=== PATIENT | female | born 1935 | race African-American/Black ===

== ENCOUNTER 2019-11-28 13:37 | Inpatient (IN) | payer MEDICARE, OTHER ==
[~2019-11-28] VITALS: Ht 167.6 cm; Wt 62.3 kg
[~2019-11-28 13:37] MED LIST: ACETAMINOPHEN-1 EAC1 ORAL; AMLODIPINE BESY10 MG ORAL; ATORVASTATIN CA10 MG ORAL; GABAPENTIN300 MG ORAL; IBUPROFEN600 MG ORAL; LASIX40 MG ORAL; NADOLOL40 MG ORAL; NORCO 10-325 T1 EACH ORAL; NORCO 5-325 TA1 EACH ORAL; NOVOLIN 70100 UNIT/1 SUBQ; SOMA350 MG PO; SPIRONOLACTONE50 MG ORAL; SYMBICORT2 PUFF1 *; VESICARE5 MG ORAL; VICODIN 5-5001 EACH ORAL
[2019-11-28 13:59] VITALS: BP 103/66
[2019-11-28] MEDS ORDERED: LISINOPRIL10 MG ORAL (13:59)
[2019-11-28] MEDS ORDERED: ACETAMINOPHEN325 M1 ORAL (13:59)
[2019-11-28] MEDS ORDERED: OXYBUTYNIN CHLO10 MG PO (13:59)
[2019-11-28] MEDS ORDERED: CEPHALEXIN500 MG ORAL (13:59)
[2019-11-28] MEDS ORDERED: CATAPRES0.1 MG ORAL (13:59)
[2019-11-28] MEDS ORDERED: ELIQUIS5 MG PO (13:59)
[2019-11-28] MEDS ORDERED: MULTIVITAMINS1 EAC8 ORAL (13:59)
--- NOTE | 2019-11-28 14:01 | NUR ---
ED Nurse Note: [facility] cellul[facility] on both upper and lower extremities. Per report, pt has already been taking ATB PO and vanco IV for 3 days but still ineffective. Pt is AOx2, calm and cooperative. Pt verbalized 9/10 pain scale, in generalized. Pt arrived with oxygen supplementation of 3 liters/min via NC. Placed on bed, Dr. Albert at bedside.
--- NOTE | 2019-11-28 14:05 | Emergency Room Report ---
History of Present Illness General Chief Complaint: Edema Source: Patient Present Illness HPI Patient is a 83-year-old female presents after increased generalized body swelling and edema. Patient had been sent in from a nursing facility. Prior history of smoking. She denies any prior history of heart kidney or liver disease. Reports having increased bilateral ex extremity pain. She is brought in by basic ambulance from facility. Allergies: Coded Allergies: BACLOFEN (Verified Allergy, Severe, ANAPHYLAXIS, 09/12/09) Patient History Past Medical History: see triage record Reviewed Nursing Documentation: PMH: Agreed; PSxH: Agreed Nursing Documentation-PMH Hx Hypertension: Yes Hx Pacemaker: Yes Hx COPD: Yes Hx Diabetes: Yes Hx Gastrointestinal Problems: Yes - GERD Review of Systems All Other Systems: negative except mentioned in HPI Physical Exam Vital Signs Date Time Temp Pulse Resp B/P (MAP) Pulse Ox O2 Delivery O2 Flow Rate FiO2 11/28/19 13:44 96.1 66 18 103/66 (78) 92 Nasal Cannula 2.0 Sp02 EP Interpretation: reviewed, normal General Appearance: alert, GCS 15, Chronically Ill Head: atraumatic ENT: normal ENT inspection, hearing grossly normal, normal voice Neck: normal inspection, full range of motion, supple, no bony tend Respiratory: normal inspection, lungs clear, normal breath sounds, no respiratory distress, no retraction, no wheezing Cardiovascular #1: regular rate, rhythm, no edema Gastrointestinal: normal inspection, normal bowel sounds, non tender, soft, no guarding, no hernia Genitourinary: no CVA tenderness Musculoskeletal: normal inspection, back normal, normal range of motion Neurologic: alert, motor strength/tone normal, 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 Differential diagnosis include was not limited to cellulitis, skin infection, hypothyroidism, among others. Because of complexity of patient's case laboratory tests and imaging studies were ordered. Patient's laboratory testing showed some evidence of anemia as well as markedly elevated TSH. Dr. Olayinka Lopez was contacted for inpatient management due to primary care physician. Dr. Morillo was contacted for plastic surgery consult. Patient be admitted for further evaluation. Last Vital Signs Date Time Temp Pulse Resp B/P (MAP) Pulse Ox O2 Delivery O2 Flow Rate FiO2 11/28/19 13:59 66 18 Nasal Cannula 2.0 11/28/19 13:59 96.1 103/66 92 Status: improved Disposition: ADMITTED INPATIENT Condition: Stable Shady Albert MD Nov 28, 2019 14:05
[2019-11-28 14:35] LABS: HEMOGLOBIN 10.2 G/DL (12.0-16.0); MEAN CORPUSCULAR VOLUME 93 FL (80-99); PLATELET COUNT 202 K/UL (150-450); RED BLOOD COUNT 3.35 M/UL (4.20-5.40); RED CELL DISTRIBUTION WIDTH 14.2 % (11.6-14.8); WHITE BLOOD COUNT 3.2 K/UL (4.8-10.8)
[2019-11-28 14:36] LABS: BASOPHILS % (AUTO) 1.7 % (0.0-2.0); EOSINOPHILS % (AUTO) 11.8 % (0.0-3.0); MONOCYTES % (AUTO) 8.4 % (1.0-10.0); NEUTROPHILS % (AUTO) 49.2 % (45.0-75.0)
[2019-11-28 14:47] LABS: ANION GAP 8 mmol/L (5-15); BLOOD UREA NITROGEN 39 mg/dL (7-18); CALCIUM 8.7 MG/DL (8.5-10.1); CARBON DIOXIDE 27 MMOL/L (21-32); CHLORIDE 103 MMOL/L (98-107); CREATININE 1.5 MG/DL (0.55-1.30); POTASSIUM 5.7 MMOL/L (3.5-5.1); SODIUM 138 MMOL/L (136-145)
[2019-11-28 14:55] LABS: ALANINE AMINOTRANSFERASE 43 U/L (12-78); ALBUMIN 2.5 G/DL (3.4-5.0); ALBUMIN/GLOBULIN RATIO 0.6 (1.0-2.7); ALKALINE PHOSPHATASE 106 U/L (46-116); ASPARTATE AMINO TRANSFERASE 50 U/L (15-37); BILIRUBIN,TOTAL 0.2 MG/DL (0.2-1.0)
[2019-11-28 15:14] LABS: APPEARANCE,URINE CLEAR; BILIRUBIN, URINE NEGATIVE (NEGATIVE); GLUCOSE, URINE (UA) NEGATIVE (NEGATIVE); KETONES,URINE NEGATIVE (NEGATIVE); LEUKOCYTE ESTERASE ,URINE NEGATIVE (NEGATIVE); NITRITE,URINE NEGATIVE (NEGATIVE); PH,URINE 5 (4.5-8.0); PROTEIN,URINE NEGATIVE (NEGATIVE); UROBILINOGEN,URINE NORMAL MG/DL (0.0-1.0)
[2019-11-28 15:18] LABS: COLOR,URINE YELLOW
--- NOTE | 2019-11-28 15:25 | NUR ---
ED Nurse Note: JUAN MANUEL KUNZ(ALEJANDRO) - -HOME PHONE -CELL PHONE
--- NOTE | 2019-11-28 17:20 | NUR ---
TRANSFER TO FLOOR: Patient transferred to Telemetry as ordered, per Dr. Blount. Report given to Candida HICKS. Belongings and medications given to receiving nurse. Family and or S/O informed of transfer.
[2019-11-28 17:35] VITALS: BP 119/66
--- NOTE | 2019-11-28 17:40 | NUR ---
NURSE NOTES: ADMITTED 83 YEAR OLD FEMALE TO ROOM 209 BED 2 VIA GURNEY FROM EMERGENCY DEPARTMENT UNDER THE CARE OF DR. TEJADA, DIAGNOSIS; COPD AND ANASARCA. NO SIGNS AND SYMPTOMS OF ACUTE RESPIRATORY DISTRESS/SHORTNESS OF BREATH NOTED, ABLE TO MAKE NEEDS KNOWN, DENIES PAIN AT THIS TIME. TRANSMISSION SPECIALIST PLACED, IV INTACT, VITAL SIGNS TAKEN. BELONGING CHECK DONE WITH TRANSFERRING NURSE. NO PRESSURE ULCER NOTED, EXCEPT CELLULITES ON BOTH BILATERAL LOWER AND UPPER EXTREMITIES. PATIENT IS IN STABLE CONDITION, WILL CONTACT MD FOR ADMISSION ORDER.
[2019-11-28] MEDS ORDERED: HydrALAZINE 25mg tab ORAL PRN (17:45)
[2019-11-28] MEDS ORDERED: HYDROcodone/Acetamin 5/325 tab ORAL PRN (17:45)
--- NOTE | 2019-11-28 17:47 | Consultation ---
Consult Note Consult Note I was asked to evaluate the patient at the request of a Dr. Blount for renal failure and hyperkalemia. Patient is 83-year old -[place] female. Presents to our emergency room for generalized body swelling and edema. Patient lives in a residential. Patient has history of smoking. Has history of heart condition but no liver or renal disease. Reports bilateral leg swelling. Allergies to baclofen . Past history is also significant for hypertension pacemaker COPD diabetes and gastroesophageal reflux disease.\On examination the patient is afebrile pulse later is 66 respiratory rate 18 blood pressure 103/66 pulse ox is 92% on 2 L/ min oxygen appears to be chronically ill. Patient has decreased breath sounds over the bases. Heart is regular with occasional irregular beats. Abdomen soft. Has bilateral lower leg swelling also upper extremities is somewhat edematous patient has skin cracking over her lower extremities and upper extremities. Her medications includes Tylenol Norvasc Eliquis Lipitor inhalers she also take Lasix clonidine gabapentin Aldactone [place] ibuprofen lisinopril Vesicare insulin and Corgard. . Assessment/Plan Renal Failure- HyperKalemia : Aldactone and Lisinopril DM Hypothyroidism : TSH 42 Pacer Hold Aldactone. Hold lisinopril. Kayexalate p.o. once Adjust blood pressure medication. Anemia work-up. 2D echocardiogram. Protonix and stool softener. IV Synthroid. Monitor electrolytes and renal parameters. Skin care. Per orders. Wale Noguera MD Nov 28, 2019 17:47
[2019-11-28] MEDS ORDERED: Sodium Polystyrene Sulfonate 15gm Powder ORAL SCH (18:30)
[2019-11-28] MEDS: Docusate 100mg cap ORAL SCH (19:08)
--- NOTE | 2019-11-28 19:16 | NUR ---
HAND-OFF: Report given to Radha/RN. Patient is in stable condition. Endorsed plan of care.
--- NOTE | 2019-11-28 19:20 | NUR ---
NURSE NOTES: Received pt and report from FABIOLA Snyder. Observed pt in the bathroom. Pt is A/Ox2-3. billing assistant is in placed; pt is NSR. IV site intact, asymptomatic, and patent. Bed is in the lowest position and locked. Call light and bedside table is within reach. No signs/symptoms of acute distress noted at this time. Will continue plan of care.
--- NOTE | 2019-11-28 20:54 | NUR ---
NURSE NOTES: Pt is currently confused, ambulating the schuler with walker and asking for a lady name Sandrita. Pt refused all medications stating, "Honey, you take the meds. You're not drugging me up tonight." Dr. Blount made aware. Dr. Blount ordered 1:1 sitter and Ativan 0.5mg PO PRN Q6H for anxiety. Will note and carry out.
[2019-11-28] MEDS ORDERED: LORazepam 0.5mg tab ORAL PRN (21:00)
[2019-11-28] MEDS: Eliquis 5mg tablet ORAL SCH (21:00)
[2019-11-28] MEDS ORDERED: Atorvastatin 20mg tab ORAL SCH (21:00)
--- NOTE | 2019-11-28 21:30 | History and Physical Report ---
DATE OF ADMISSION: 11/28/2019 HISTORY OF PRESENT ILLNESS: The patient comes in with worsening upper extremity edema and cellulitis, very scaly, and edema is getting worse. The patient has been hospitalized before and has received IV antibiotics as well as anticoagulant for the upper extremity DVT. The patient also has recent diagnosis of lung cancer. Cachexia and emaciated due to the cancer. The patient has also been having worsening dementia in the recent past months. The patient also has history of COPD and diabetes and also has leukopenia and also admitted for hyperkalemia and azotemia as well. Denies shortness of breath. Does have occasional cough. Does have occasional wheezing; however, is a poor historian at this point. PAST MEDICAL HISTORY: Dementia, neuropathy, NIDDM, lung cancer, hypertension, GERD, urinary incontinence, upper extremity DVT and cellulitis, hyperlipidemia, history of wrist fracture, history of foot fracture. PAST SURGICAL HISTORY: History of foot and lower extremity fracture repair, pacemaker. ALLERGIES: To baclofen. MEDICATIONS: Lipitor, Eliquis, amlodipine, insulin, and spironolactone. FAMILY HISTORY: Does have history of diabetes and hypertension. SOCIAL HISTORY: Does have heavy smoking history. Does have history of alcohol abuse. Denies history of drug abuse. REVIEW OF SYSTEMS: HEENT: Denies headaches. RESPIRATORY: Denies shortness of breath. Does have cough and wheezing at times. CARDIOVASCULAR: Denies chest pain. GASTROINTESTINAL: Denies nausea, vomiting, or diarrhea. EXTREMITIES: Reports worsening edema in the upper extremity and also worsening hand pain both hands. Denies pain in lower extremities. CENTRAL NERVOUS SYSTEM: Denies change in speech pattern. PHYSICAL EXAMINATION: VITAL SIGNS: Temperature is 96.1, pulse 66, blood pressure is 103/66. HEENT: PERRLA. NECK: Supple. CHEST: Irregularly irregular. Paced rhythm is appreciated. The patient has scaly upper extremity hands and edema and cellulitis that is getting worse. The patient is emaciated and cachectic. GASTROINTESTINAL: Soft, nontender, nondistended. No organomegaly. EXTREMITIES: No edema. Reflexes equal on both sides. Moves all four extremities. NEUROLOGIC: Oriented x1. LABORATORY DATA: WBC of 3.2, hemoglobin of 10.2, platelets 202. Sodium 138, potassium 5.7, BUN of 39, creatinine 1.5, glucose 139. TSH 42.5. ASSESSMENT AND PLAN: Upper extremity edema, upper extremity cellulitis getting worse. I have asked Dr. Elvin Morillo as well as Dr. Simone Haynes to see the patient as well as Dr. Rick Huerta for the DVT treatment. The patient also has azotemia and hyperkalemia for which Dr. Noguera has been consulted and for severe hypothyroidism, Dr. Honeycutt has been consulted. Antibiotics per Dr. Simone Haynes. Olayinka Blount M.D. DR: CHARLES JOB#: [id number] CC:
--- NOTE | 2019-11-28 22:26 | NUR ---
NURSE NOTES: Pt continues to ambulate schuler and pulling off laboratory monitor. Attempted to reorient pt and reapply laboratory monitor but pt refused stating, "You're real close to me. I'm going to punch you if you keep it up." Will continue to monitor pt closely.
[2019-11-29] VITALS: BP 112/63
--- NOTE | 2019-11-29 01:30 | NUR ---
NURSE NOTES: Pt is now calm and in bed watching television. No signs/symptoms of acute distress noted at this time. Will continue plan of care and monitor pt closely.
[2019-11-29] MEDS ORDERED: LORazepam 1mg tab ORAL PRN ×2 (03:00→17:50)
--- NOTE | 2019-11-29 04:25 | NUR ---
NURSE NOTES: Pt refused 0400 vital signs and manager monitoring. Pt would agree to care, but would refuse shortly after when RN proceed to care. Explained to risks and benefits to pt. Will continue to monitor pt.
--- NOTE | 2019-11-29 06:22 | Consultation ---
History of Present Illness General Chief Complaint: Edema Present Illness Allergies: Coded Allergies: BACLOFEN (Verified Allergy, Severe, ANAPHYLAXIS, 09/12/09) Medication History Scheduled Amlodipine Besylate* (Amlodipine Besylate*), 10 MG ORAL DAILY, (Reported) Apixaban (Eliquis), 5 MG PO BID, (Reported) Atorvastatin Calcium* (Lipitor*), 20 MG ORAL BEDTIME, (Reported) Budesonide/Formoterol Fumarate (Symbicort 160-4.5 Mcg Inhaler), 2 PUFFS * needed , (Reported) Cephalexin* (Keflex*), 500 MG ORAL EVERY 8 HOURS, (Reported) Clonidine Hcl* (Catapres*), 0.1 MG ORAL EVERY 6 HOURS, (Reported) Furosemide* (Lasix*), 40 MG ORAL DAILY, (Reported) Gabapentin* (Gabapentin*), 300 MG ORAL THREE TIMES A DAY, (Reported) Hum Insulin Nph/Reg Insulin Hm (Novolin 70-30 100 Unit/Ml Vial), 20 SUBQ am, ( Reported) Hum Insulin Nph/Reg Insulin Hm (Novolin 70-30 100 Unit/Ml Vial), 24 SUBQ pm, ( Reported) Hydrocodone/Acetaminophen 5-500 (Vicodin 5-500), 1 TAB ORAL Q4HR, (Reported) Ibuprofen* (Motrin*), 600 MG ORAL THREE TIMES A DAY Lisinopril* (Lisinopril*), 10 MG ORAL DAILY, (Reported) Multivitamin With Minerals (Multivitamins With Minerals*), 1 TAB ORAL DAILY, ( Reported) Nadolol* (Corgard*), 20 MG ORAL DAILY, (Reported) Solifenacin Succinate* (Vesicare*), 5 MG ORAL DAILY, (Reported) Spironolactone* (Aldactone*), 12.5 MG ORAL DAILY, (Reported) Scheduled PRN Acetaminophen With Codeine (T#3) (Tylenol #3 Tab*), 1 TAB ORAL Q8H PRN for For Pain Acetaminophen* (Acetaminophen 325MG Tablet*), 650 MG ORAL Q6H PRN for For Pain, (Reported) Hydrocodone Bit/Acetaminophen 5-325* ([place]ena 5-325*), 1 TAB ORAL Q6H PRN for For Pain Miscellaneous Medications Oxybutynin Chloride (Oxybutynin Chloride Er), 10 MG PO, (Reported) Patient History Healthcare decision maker N Resuscitation status Full Code Advanced Directive on File Physical Exam Last 24 Hour Vital Signs Date Time Temp Pulse Resp B/P (MAP) Pulse Ox O2 Delivery O2 Flow Rate FiO2 11/29/19 00:00 63 11/29/19 00:00 96.8 63 20 112/63 (79) 94 11/28/19 21:00 Nasal Cannula 2.0 11/28/19 19:40 87 11/28/19 17:56 Nasal Cannula 2.0 11/28/19 17:35 96.5 60 18 119/66 (83) 96 11/28/19 17:20 96.1 68 17 103/66 96 Nasal Cannula 2.0 11/28/19 13:59 66 18 Nasal Cannula 2.0 11/28/19 13:59 96.1 18 103/66 92 Nasal Cannula 2.0 11/28/19 13:44 96.1 66 18 103/66 (78) 92 Nasal Cannula 2.0 Laboratory Tests Test 11/28/19 14:17 11/28/19 14:46 White Blood Count 3.2 K/UL (4.8-10.8) L Red Blood Count 3.35 M/UL (4.20-5.40) L Hemoglobin 10.2 G/DL (12.0-16.0) L Hematocrit 31.0 % (37.0-47.0) L Mean Corpuscular Volume 93 FL (80-99) Mean Corpuscular Hemoglobin 30.4 PG (27.0-31.0) Mean Corpuscular Hemoglobin Concent 32.8 G/DL (32.0-36.0) Red Cell Distribution Width 14.2 % (11.6-14.8) Platelet Count 202 K/UL (150-450) Mean Platelet Volume 5.1 FL (6.5-10.1) L Neutrophils (%) (Auto) 49.2 % (45.0-75.0) Lymphocytes (%) (Auto) 29.0 % (20.0-45.0) Monocytes (%) (Auto) 8.4 % (1.0-10.0) Eosinophils (%) (Auto) 11.8 % (0.0-3.0) H Basophils (%) (Auto) 1.7 % (0.0-2.0) Erythrocyte Sedimentation Rate 60 MM/HR (0-30) H Sodium Level 138 MMOL/L (136-145) Potassium Level 5.7 MMOL/L (3.5-5.1) H Chloride Level 103 MMOL/L (98-107) Carbon Dioxide Level 27 MMOL/L (21-32) Anion Gap 8 mmol/L (5-15) Blood Urea Nitrogen 39 mg/dL (7-18) H Creatinine 1.5 MG/DL (0.55-1.30) H Estimat Glomerular Filtration Rate 40.4 mL/min (>60) Glucose Level 129 MG/DL (74-106) H Calcium Level 8.7 MG/DL (8.5-10.1) Total Bilirubin 0.2 MG/DL (0.2-1.0) Aspartate Amino Transf (AST/SGOT) 50 U/L (15-37) H Alanine Aminotransferase (ALT/SGPT) 43 U/L (12-78) Alkaline Phosphatase 106 U/L (46-116) Troponin I 0.017 ng/mL (0.000-0.056) Pro-B-Type Natriuretic Peptide 305 pg/mL (0-125) H Total Protein 6.4 G/DL (6.4-8.2) Albumin 2.5 G/DL (3.4-5.0) L Globulin 3.9 g/dL Albumin/Globulin Ratio 0.6 (1.0-2.7) L Thyroid Stimulating Hormone (TSH) 42.594 uiU/mL (0.358-3.740) Urine Color Yellow Urine Appearance Clear Urine pH 5 (4.5-8.0) Urine Specific [place] 1.015 (1.005-1.035) Urine Protein Negative (NEGATIVE) Urine Glucose (UA) Negative (NEGATIVE) Urine Ketones Negative (NEGATIVE) Urine Blood Negative (NEGATIVE) Urine Nitrite Negative (NEGATIVE) Urine Bilirubin Negative (NEGATIVE) Urine Urobilinogen Normal MG/DL (0.0-1.0) Urine Leukocyte Esterase Negative (NEGATIVE) Urine RBC 0-2 /HPF (0 - 2) Urine WBC 0-2 /HPF (0 - 2) Urine Squamous Epithelial Cells Occasional /LPF Urine Bacteria None /HPF (NONE) Height (Feet): 5 Height (Inches): 6.00 Weight (Pounds): 143 Medications Current Medications Medications (Trade) Dose Ordered Sig/Shania Route PRN Reason Start Time Stop Time Status Last Admin Dose Admin Acetaminophen (Tylenol) 650 mg Q6H PRN ORAL For Pain 1-3 11/28/19 18:00 12/28/19 17:46 Acetaminophen/ Hydrocodone Bitart (Buena 5/325) 1 tab Q6H PRN ORAL For Pain 4-6 11/28/19 17:45 12/05/19 17:44 Apixaban (Eliquis) 5 mg Q12HR ORAL 11/28/19 21:00 12/28/19 20:59 Atorvastatin Calcium (Lipitor) 20 mg BEDTIME ORAL 11/28/19 21:00 12/28/19 20:59 Carvedilol (Coreg) 3.125 mg EVERY 12 HOURS ORAL 11/28/19 21:00 12/28/19 20:59 Docusate Sodium (Colace) 100 mg TWICE A DAY ORAL 11/28/19 18:00 12/28/19 17:59 11/28/19 19:08 Gabapentin (Neurontin) 300 mg Q8HR ORAL 11/28/19 22:00 12/28/19 21:59 11/29/19 05:39 Hydralazine HCl (Apresoline) 25 mg Q4H PRN ORAL bp over 160 syst 11/28/19 17:45 12/28/19 17:44 Levothyroxine Sodium (Synthroid) 50 mcg DAILY IV 11/29/19 09:00 12/29/19 08:59 Lorazepam (Ativan) 1 mg Q6H PRN ORAL For Anxiety 11/29/19 03:00 12/06/19 02:59 Pantoprazole (Protonix) 40 mg Q12HR ORAL 11/28/19 21:00 12/28/19 20:59 Assessment/Plan Assessment/Plan: Oncology Consultation REKuldeep MD: Olayinka Lopez RFC: Upper ext dvt and lung ca DOS: 11/29/19 ID Patient is a 83-year-old female presents after increased generalized body swelling and edema. Patient had been sent in from a nursing facility. Prior history of smoking. She denies any prior history of heart kidney or liver disease. Reports having increased bilateral ex extremity pain. She is brought in by basic ambulance from facility. Is on apixaban for upper ext dvt. Allergies: BACLOFEN (Verified Allergy, Severe, ANAPHYLAXIS, 09/12/09) Patient History Past Medical History: see triage record Reviewed Nursing Documentation: PMH: Agreed; PSxH: Agreed Nursing Documentation-PMH Hx Hypertension: Yes Hx Pacemaker: Yes Hx COPD: Yes Hx Diabetes: Yes Hx Gastrointestinal Problems: Yes - GERD Review of Systems All Other Systems: negative except mentioned in HPI Physical Exam General: normal inspection, alert, GCS 15, Chronically Ill Head: atraumatic HEENT: nc, at Resp: normal inspection, lungs clear, normal breath sounds Cardiovascular: regular rate, rhythm, no edema Gi: normal inspection, normal bowel sounds, non tender, soft, no guarding, no hernia Genitourinary: no CVA tenderness Musculoskeletal: normal inspection, back normal, normal range of motion Neurologic: alert, motor strength/tone normal, 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 LABORATORY DATA: WBC of 3.2, hemoglobin of 10.2, platelets 202. Sodium 138, potassium 5.7, BUN of 39, creatinine 1.5, glucose 139. TSH 42.5. IMAGING: noted ASSESSMENT AND PLAN: # Lung cancer recent diagnosis at [facility], with likely spread, stage iv, though requires pet --> recommend outpatient evaluation and rx --> has seen us in the outpatient clinic --> obtain clinic records, do not believe she has started treatment uet # Upper extremity dvt with edema, & upper extremity cellulitis getting worse --> have started on apixaban # Upper ext cellulitis --> on abx as needed # Dehydration and azotemia --> started on ivf # Hyperkalemia --> kayxelate has been given po # Hypothyroidism, Dr. Honeycutt has been --> synthroid Appreciate consultation and Rick Nichols RN, MD Nov 29, 2019 06:22
[2019-11-29] MEDS: NovoLOG Insulin Flexpen SUBQ SCH ×4 (06:30→20:24)
--- NOTE | 2019-11-29 07:08 | NUR ---
NURSE NOTES: Pt refused blood sugar check and insulin subQ. Explained the risks and benefits. Will monitor pt.
--- NOTE | 2019-11-29 07:30 | NUR ---
NURSE NOTES: Nurse report given by FABIOLA SAAB. Patient's awake and laying in bed, eyes open spontaneously, AO x 2, denies pain, no s/s of distress or SOB. Bed low and locked, call light within reach, side rails x3, bed alarm is armed, sitter at bedside. Patient refused morning lab and 0800 vital signs check, explained the risks and patient still denied. Patient also denied to have 2D echo test done. Will inform MD regarding the situation. IV is saline locked, patent and asymptomatic. Will continue to monitor.
--- NOTE | 2019-11-29 07:50 | NUR ---
HAND-OFF: Report given to FABIOLA Small. Plan of care endorsed.
[2019-11-29] MEDS: Docusate 100mg cap ORAL SCH ×2 (09:00→18:21)
[2019-11-29] MEDS: Eliquis 5mg tablet ORAL SCH ×2 (09:00→20:25)
[2019-11-29] MEDS ORDERED: Lidocaine 1% 10mg/ml/Epi 0.005mg/ml 30ml vial INJ ONE (10:30)
[2019-11-29 12:00] VITALS: BP 121/72
--- NOTE | 2019-11-29 14:36 | NUR ---
NURSE NOTES: Notified Dr. Blount regarding patient's been refusing all medications, labs drawn and imaging tests. Dr. Jluis Haynes order Permethrin for her cellulitis but patient also refused to be applied and dressing changed. Explains the benefits of the medication and risks of not taking the medications but patient still refused. Patient refused to have tele box monitor. Informed Dr. blount that Dr. Edwards also discharged patient's sitter. MD aware and ordered to transfer patient to [facility]. Order acknowledged and carried out.
--- NOTE | 2019-11-29 15:02 | Nephrology Progress Note ---
Assessment/Plan Problem List: (1) CARYL (acute kidney injury) (2) Electrolyte imbalance (3) Hypothyroidism (4) DMII (diabetes mellitus, type 2) (5) Pacemaker Assessment Renal Failure- HyperKalemia : Aldactone and Lisinopril DM Hypothyroidism : TSH 42 Pacer Plan According to the nurse patient refused blood draw and some of her medications Hold Aldactone. Hold lisinopril. Kayexalate p.o. once Adjust blood pressure medication. Anemia work-up. 2D echocardiogram. Protonix and stool softener. IV Synthroid. Monitor electrolytes and renal parameters. Skin care. Per orders. Subjective ROS Limited/Unobtainable: No Constitutional: Reports: weakness Objective Objective Last 24 Hour Vital Signs Date Time Temp Pulse Resp B/P (MAP) Pulse Ox O2 Delivery O2 Flow Rate FiO2 11/29/19 12:00 97.7 69 18 121/72 (88) 93 11/29/19 09:00 63 112/63 11/29/19 09:00 Nasal Cannula 2.0 11/29/19 00:00 63 11/29/19 00:00 96.8 63 20 112/63 (79) 94 11/28/19 21:00 Nasal Cannula 2.0 11/28/19 19:40 87 11/28/19 17:56 Nasal Cannula 2.0 11/28/19 17:35 96.5 60 18 119/66 (83) 96 11/28/19 17:20 96.1 68 17 103/66 96 Nasal Cannula 2.0 Intake and Output 11/28/19 11/29/19 19:00 07:00 Intake Total 200 ml Balance 200 ml Intake Other 200 ml # Voids 4 Height (Feet): 5 Height (Inches): 6.00 Weight (Pounds): 143 General Appearance: no apparent distress, lethargic Cardiovascular: normal rate Respiratory/Chest: decreased breath sounds Abdomen: soft Wale Noguera MD Nov 29, 2019 15:02
[2019-11-29 16:00] VITALS: BP 104/55
--- NOTE | 2019-11-29 16:20 | NUR ---
CASE MANAGEMENT:REVIEW 83 YR OLD FEMALE KENIA FROM [facility] CC: BUE CELLULITIS PMH: PACEMAKER SI: CARYL.EDEMA 96.0 66 18 103/66 92% ON 2L/NC H/H-10.2/31.0 K+5.7 BUN+39 CR+1.5 TSH+45.5 IS: IV LASIX IV SYNTHROID KAYEXALATE PO IV ALBUMIN : TO TELEMETRY
--- NOTE | 2019-11-29 17:00 | Consultation ---
DATE OF CONSULTATION: 11/29/2019 ENDOCRINOLOGY CONSULTATION CONSULTING PHYSICIAN: Natalio Honeycutt M.D. REFERRING PHYSICIAN: Olayinka Blount M.D. REASON FOR CONSULTATION: 1. Diabetes management. 2. Hypothyroidism. HISTORY OF PRESENT ILLNESS: The patient is an 83-year-old female, known to me since I follow her as an outpatient for the management of diabetes. She does not have any history of hypothyroidism. The patient missed a recent appointment last week. Last time I saw her was four months ago, and at that time her hemoglobin A1c was 6.9, and she was taking Lantus 20 units daily with Starlix 120 mg before each meal. The patient recently diagnosed with lung cancer and presented to the hospital, and at this time she was admitted with worsening of the upper extremity edema and upper extremity cellulitis. I was called to manage diabetes. PAST MEDICAL HISTORY: 1. Dementia. 2. Neuropathy. 3. Insulin dependent diabetes, on basal insulin. 4. Lung cancer. 5. Hypertension. 6. GERD. 7. Hyperlipidemia. 8. Wrist fracture. 9. Foot fracture. PAST SURGICAL HISTORY: 1. Orthopedic surgery. 2. Pacemaker placement. ALLERGIES: To baclofen. MEDICATIONS: Reviewed and reconciled. FAMILY HISTORY: History of diabetes and hypertension. SOCIAL HISTORY: Heavy smoker and does have history of alcohol abuse. No drug use. REVIEW OF SYSTEMS: A 12-point review of systems was performed and pertinent positives and negatives are mentioned in the history of present illness. PHYSICAL EXAMINATION: VITAL SIGNS: Blood pressure is 103/66, heart rate 66, temperature 96.1. HEENT: Pupils are equal and reactive to light. Sclerae are anicteric. NECK: No JVD. No thyromegaly. LUNGS: Clear. HEART: Regular rate and rhythm. ABDOMEN: Positive bowel sounds. EXTREMITIES: No clubbing, cyanosis, or edema. LABORATORY DATA: Sodium 138, potassium 5.7, chloride 102, bicarb 27, BUN 39, creatinine 1.5, glucose of 129. TSH of 42. DIAGNOSES: 1. Upper extremity edema with cellulitis. 2. Diabetes. 3. New-onset hypothyroidism. PLAN: 1. Continue with levothyroxine IV 50 mcg. After couple of days, we will convert to levothyroxine 100 mcg daily tablets. 2. Start NovoLog sliding scale before meals and at bedtime. 3. Check hemoglobin A1c is pending. 4. I will hold off on basal insulin and Starlix for now until I get a better sense of her most current glucose values. 5. I will follow her closely during the hospital stay. Thank you, Dr. Blount, for the courtesy of this consultation. Natalio Honeycutt M.D. DR: FABIOLA/RADHA JOB#: [id number] CC:
--- NOTE | 2019-11-29 17:45 | NUR ---
NURSE NOTES: Patient's transferred to [facility] per Dr. Blount's order. Patient's in stable condition, ambulates with assist, AO x 2, denies pain, no s/s of distress or SOB. Tele box removed. Patient's belonging list went over with the receiving nurse, FABIOLA Castro; signed by both nurses at bedside. Patient's transfer order carried out.
[2019-11-29] MEDS ORDERED: HYDROcodone/Acetamin 5/325 tab ORAL PRN (17:50)
[2019-11-29] MEDS ORDERED: HydrALAZINE 25mg tab ORAL PRN (17:50)
--- NOTE | 2019-11-29 18:04 | NUR ---
NURSE NOTES:Handoff received from FABIOLA Fuller from telemetry. Patient received awake and alert to person, place and situation, no acute signs of distress noted, vitals are stable. Patient has Left A/C 20g saline locked, patient belongings list go over with transferring nurse, all belongings accounted for and signed. Patient oriented to room and call light. Bed in the low and locked position with call light on, informed patient to use call light if she needs to get out of bed and not to get out of bed without assistance. will continue to monitor patient.
--- NOTE | 2019-11-29 18:28 | NUR ---
NURSE NOTES:Patient has Permethrin cream that is no longer showing up on the Emar. Transferring nurse said patient refused the cream. Contacted Ana to see if I can still apply the cream after it has been discontinued. Also called because the cream is for scabies and wanted to make sure this patient does not require isolation. Left a message for Taco Jaquez.
--- NOTE | 2019-11-29 19:35 | NUR ---
NURSE NOTES:HAND-OFF: Report given to FABIOLA Lovett.Informed RN that I left a message for ID doctor Ivy España to follow up regarding the topical cream permethrin as it was not adminstered to the patient and is now listed as dicontinued.
[2019-11-29 20:00] VITALS: BP 106/60
--- NOTE | 2019-11-29 20:00 | NUR ---
NURSE NOTES: Received patient awake in bed, edematous and scaly upper extremities noted, patient continuously scratching. Awaiting Dr Taco Haynes's response regarding patient isolation and plan of care.
[2019-11-29] MEDS: Atorvastatin 20mg tab ORAL SCH (20:24)
--- NOTE | 2019-11-29 21:00 | Consultation ---
DATE OF CONSULTATION: 11/29/2019 INFECTIOUS DISEASES CONSULTATION CONSULTING PHYSICIAN: Simone Haynes M.D. PRIMARY ATTENDING PHYSICIAN: Olayinka Blount M.D. REASON FOR CONSULTATION: Leukopenia, dermatitis, and cellulitis of upper extremities. HISTORY OF PRESENT ILLNESS: This is an 83-year-old female admitted yesterday from long term because of generalized edema. The patient had a recent history of admission to [facility] in [place]. She has chronic skin lesion in the upper extremities, likely dermatitis. PAST MEDICAL HISTORY: Significant for hypertension, COPD, diabetes mellitus, gastroesophageal reflux disease, history of lung cancer stage IV, history of deep vein thrombosis in the lower extremity, fracture of lower extremity. ALLERGIES: Baclofen. MEDICATIONS: Remeron, levothyroxine, insulin, lorazepam, gabapentin, Apixaban, carvedilol. SOCIAL HISTORY: longterm resident, smoker, . REVIEW OF SYSTEMS: No fever, no chills. No shortness of breath. No significant coughing. No nausea. No vomiting. No diarrhea. Itching in the upper extremities. PHYSICAL EXAMINATION: VITAL SIGNS: Temperature 95.8, pulse 63, blood pressure 112/63. GENERAL APPEARANCE: No acute distress. HEAD AND NECK: Getting oxygen by nasal cannula. [place] conjunctivae. HEART: Normal rate. LUNGS: Decreased sounds. ABDOMEN: Soft and nontender. EXTREMITIES: Has edema more in arms SKIN: Hyperkeratoses, skin cracks in upper extremities, has scratch graham. LABORATORY AND DIAGNOSTIC DATA: WBC 3.2, hemoglobin 10.3, hematocrit 31, platelets 202,000. ESR is 60. Sodium 138, potassium 5.7, chloride 103, bicarb 27, BUN 39, creatinine 1.5. TSH is elevated at 42.59. BNP is 305. IMPRESSION: Leukopenia, eosinophilia, has dermatitis, may also have cellulitis of upper extremities, hypertension, COPD, diabetes mellitus, lung cancer, hypothyroidism, history of DVT, dementia with behavioral problem. RECOMMENDATION: We will obtain wound culture. We will give a dose of Elimite. The patient currently refused medication. We will try for more information about previous hospitalization in [facility] in [place]. At the end of my exam, I thank Dr. Blount for involving me in the care of this patient. Simone Haynes M.D. DR: [place] JOB#: [id number] CC: TERRELL
--- NOTE | 2019-11-29 23:08 | General Progress Note ---
Assessment/Plan Problem List: (1) Edema ICD Codes: R60.9 - Edema, unspecified SNOMED: 860506589, 506015445 (2) Anemia ICD Codes: D64.9 - Anemia, unspecified SNOMED: 191857261 (3) Hypothyroidism ICD Codes: E03.9 - Hypothyroidism, unspecified SNOMED: 81802022 (4) DMII (diabetes mellitus, type 2) ICD Codes: E11.9 - Type 2 diabetes mellitus without complications SNOMED: 26195734 (5) Pacemaker ICD Codes: Z95.0 - Presence of cardiac pacemaker SNOMED: 029432124 (6) Osteoarthritis ICD Codes: M19.90 - Unspecified osteoarthritis, unspecified site SNOMED: 062906343 Status: progressing Assessment/Plan: severe edema and scaly upper extremity dvt of upper exteremity lung cancer worsening dementia agitation refusing meds dm Subjective ROS Limited/Unobtainable: Yes Allergies: Coded Allergies: BACLOFEN (Verified Allergy, Severe, ANAPHYLAXIS, 09/12/09) Objective Last 24 Hour Vital Signs Date Time Temp Pulse Resp B/P (MAP) Pulse Ox O2 Delivery O2 Flow Rate FiO2 11/29/19 21:13 Nasal Cannula 2.0 11/29/19 20:25 61 104/55 11/29/19 20:00 97.1 64 18 106/60 (75) 93 11/29/19 16:00 97.9 61 18 104/55 (71) 93 11/29/19 12:00 97.7 69 18 121/72 (88) 93 11/29/19 09:00 63 112/63 11/29/19 09:00 Nasal Cannula 2.0 11/29/19 00:00 63 11/29/19 00:00 96.8 63 20 112/63 (79) 94 Intake and Output 11/28/19 11/29/19 19:00 07:00 Intake Total 200 ml Balance 200 ml Intake Other 200 ml # Voids 4 Height (Feet): 5 Height (Inches): 6.00 Weight (Pounds): 143 General Appearance: confused Cardiovascular: regular rhythm Respiratory/Chest: lungs clear Abdomen: soft Olayinka Blount MD Nov 29, 2019 23:08
[2019-11-30] VITALS (12 sets, daily range): BP systolic 102–119; BP diastolic 56–70
--- NOTE | 2019-11-30 06:00 | Consultation ---
DATE OF CONSULTATION: 11/29/2019 HISTORY OF PRESENT ILLNESS: This is an 83-year-old female with a history of multiple medical issues who has been admitted to the hospital for medical stabilization. The patient is having hyperthyroidism and has dementia, leukopenia, and cellulitis. She has been admitted to the hospital for medical stabilization. The patient is a poor historian, unable to be engaged during evaluation. Answers the questions. The patient was also hospitalized . The patient has episodes of anxiety. PAST PSYCHIATRIC HISTORY: Dementia and anxiety disorder. PAST MEDICAL HISTORY: COPD, diabetes, hypertension, GERD, and lung cancer. ALLERGIES: Baclofen. SUBSTANCE ABUSE HISTORY: No known history of illicit drug use or alcohol. MENTAL STATUS EXAMINATION: The patient is alert and oriented times self and place. Mood is anxious. Affect is flat. Thought process, there is a paucity of thought content. Thought content, no suicidal or homicidal ideation. Cognition is impaired. Insight and judgment are impaired. ASSESSMENT: 1. Dementia with behavior disturbance. 2. Anxiety disorder. PLAN: 1. Ativan p.r.n. 2. Mirtazapine. 3. Discussed with the nurse. 4. DC the sitter. Lupe Edwards M.D. DR: EFREM JOB#: [id number] CC:
[2019-11-30] MEDS: NovoLOG Insulin Flexpen SUBQ SCH ×4 (06:20→22:34)
--- NOTE | 2019-11-30 06:29 | General Progress Note ---
Assessment/Plan Problem List: (1) Hypothyroid ICD Codes: E03.9 - Hypothyroidism, unspecified SNOMED: 19980219 (2) COPD (chronic obstructive pulmonary disease) ICD Codes: J44.9 - Chronic obstructive pulmonary disease, unspecified SNOMED: 24203411 (3) DMII (diabetes mellitus, type 2) ICD Codes: E11.9 - Type 2 diabetes mellitus without complications SNOMED: 19437311 Status: progressing Assessment/Plan: no need for Levemir or Starlix for now continue Novolog sliding scale continue Levothyroxine IV 50 mcg daily - will convert to tablet 100 mcg daily tomorrow Subjective Allergies: Coded Allergies: BACLOFEN (Verified Allergy, Severe, ANAPHYLAXIS, 09/12/09) All Systems: reviewed and negative except above Subjective glucose values are stable events noted Item Value Date Time Bedside Blood Glucose 97 mg/dl 11/30/19 0620 Bedside Blood Glucose 189 mg/dl H 11/29/192023 Objective Last 24 Hour Vital Signs Date Time Temp Pulse Resp B/P (MAP) Pulse Ox O2 Delivery O2 Flow Rate FiO2 11/30/19 04:00 98.0 70 20 104/62 (76) 96 11/30/19 00:00 97.5 69 18 110/66 (81) 96 11/29/19 21:13 Nasal Cannula 2.0 11/29/19 20:25 61 104/55 11/29/19 20:00 97.1 64 18 106/60 (75) 93 11/29/19 16:00 97.9 61 18 104/55 (71) 93 11/29/19 12:00 97.7 69 18 121/72 (88) 93 11/29/19 09:00 63 112/63 11/29/19 09:00 Nasal Cannula 2.0 Intake and Output 11/29/19 11/30/19 19:00 07:00 Intake Total 240 ml Balance 240 ml Intake Oral 240 ml # Voids 1 Laboratory Tests 11/30/19 05:40: White Blood Count [Pending], Red Blood Count [Pending], Hemoglobin [Pending], Hematocrit [Pending], Mean Corpuscular Volume [Pending], Mean Corpuscular Hemoglobin [Pending], Mean Corpuscular Hemoglobin Concent [Pending], Red Cell Distribution Width [Pending], Platelet Count [Pending], Mean Platelet Volume [ Pending], Neutrophils (%) (Auto) [Pending], Lymphocytes (%) (Auto) [Pending], Monocytes (%) (Auto) [Pending], Eosinophils (%) (Auto) [Pending], Basophils (%) (Auto) [Pending], Sodium Level [Pending], Potassium Level [Pending], Chloride Level [Pending], Carbon Dioxide Level [Pending], Blood Urea Nitrogen [Pending], Creatinine [Pending], Estimat Glomerular Filtration Rate [Pending], Glucose Level [Pending], Hemoglobin A1c [Pending], Uric Acid [Pending], Calcium Level [ Pending], Phosphorus Level [Pending], Magnesium Level [Pending], Total Bilirubin [Pending], Gamma Glutamyl Transpeptidase [Pending], Aspartate Amino Transf (AST/SGOT) [Pending], Alanine Aminotransferase (ALT/SGPT) [Pending], Alkaline Phosphatase [Pending], C-Reactive Protein, Quantitative [Pending], Pro- B-Type Natriuretic Peptide [Pending], Total Protein [Pending], Albumin [Pending] , Globulin [Pending], Triglycerides Level [Pending], Cholesterol Level [Pending] , LDL Cholesterol [Pending], HDL Cholesterol [Pending], Cholesterol/HDL Ratio [ Pending] Height (Feet): 5 Height (Inches): 6.00 Weight (Pounds): 143 General Appearance: no apparent distress Cardiovascular: normal rate Respiratory/Chest: rhonchi - bilaterally Abdomen: normal bowel sounds Pelvis: normal external exam Objective Current Medications Medications (Trade) Dose Ordered Sig/Shania Route PRN Reason Start Time Stop Time Status Last Admin Dose Admin Acetaminophen (Tylenol) 650 mg Q6H PRN ORAL For Pain 1-3 11/29/19 17:50 12/29/19 17:49 Acetaminophen/ Hydrocodone Bitart (Bessie 5/325) 1 tab Q6H PRN ORAL For Pain 4-6 11/29/19 17:50 12/06/19 17:49 Apixaban (Eliquis) 5 mg Q12HR ORAL 11/29/19 21:00 12/28/19 20:59 11/29/19 20:25 Atorvastatin Calcium (Lipitor) 20 mg BEDTIME ORAL 11/29/19 21:00 12/28/19 20:59 11/29/19 20:24 Carvedilol (Coreg) 3.125 mg EVERY 12 HOURS ORAL 11/29/19 21:00 12/28/19 20:59 11/29/19 20:25 Dextrose (Dextrose 50%) 25 ml Q30M PRN IV Hypoglycemia 11/29/19 18:00 12/29/19 06:29 Dextrose (Dextrose 50%) 50 ml Q30M PRN IV Hypoglycemia 11/29/19 18:00 12/29/19 06:29 Docusate Sodium (Colace) 100 mg TWICE A DAY ORAL 11/29/19 18:00 12/28/19 17:59 11/29/19 18:21 Gabapentin (Neurontin) 300 mg Q8HR ORAL 11/29/19 22:00 12/28/19 21:59 11/30/19 05:40 Hydralazine HCl (Apresoline) 25 mg Q4H PRN ORAL bp over 160 syst 11/29/19 17:50 12/29/19 17:49 Insulin Aspart (NovoLOG) BEFORE MEALS AND HS SUBQ 11/29/19 21:00 12/29/19 06:29 11/29/19 20:24 Levothyroxine Sodium (Synthroid) 50 mcg DAILY IV 11/30/19 09:00 12/29/19 08:59 Linezolid (Zyvox) 600 mg EVERY 12 HOURS ORAL 11/29/19 17:51 12/04/19 17:50 11/29/19 18:22 Lorazepam (Ativan) 1 mg Q6H PRN ORAL For Anxiety 11/29/19 17:50 12/06/19 17:49 11/29/19 22:20 Mirtazapine (Remeron) 7.5 mg BEDTIME ORAL 11/29/19 21:00 12/29/19 20:59 11/29/19 20:24 Pantoprazole (Protonix) 40 mg Q12HR ORAL 11/29/19 21:00 12/28/19 20:59 11/29/19 20:24 Natalio Honeycutt MD Nov 30, 2019 06:29
[2019-11-30 06:34] LABS: HEMATOCRIT 31.5 % (37.0-47.0); HEMOGLOBIN 10.4 G/DL (12.0-16.0); MEAN CORPUSCULAR VOLUME 93 FL (80-99); PLATELET COUNT 205 K/UL (150-450); RED CELL DISTRIBUTION WIDTH 14.9 % (11.6-14.8); WHITE BLOOD COUNT 2.9 K/UL (4.8-10.8)
--- NOTE | 2019-11-30 06:57 | NUR ---
HAND-OFF: Report given to Kathi.
[2019-11-30 07:09] LABS: NEUTROPHILS % (AUTO) 43.7 % (45.0-75.0)
[2019-11-30 07:10] LABS: BASOPHILS % (AUTO) 1.3 % (0.0-2.0); EOSINOPHILS % (AUTO) 11.1 % (0.0-3.0); LYMPHOCYTES % (AUTO) 34.5 % (20.0-45.0); MONOCYTES % (AUTO) 9.4 % (1.0-10.0)
--- NOTE | 2019-11-30 07:15 | NUR ---
NURSE NOTES: Received from FABIOLA Lovett. asleep. Patient received awake, alert and oriented x3. no acute signs of distress noted, vitals are stable.IV access on Left A/C 20g patent and intact. saline locked. Bed in the low and locked position with call light on, educate to use call light for assistance. brake engaged and locked @ all times. will continue to monitor.
[2019-11-30 07:20] LABS: ALANINE AMINOTRANSFERASE 45 U/L (12-78); ALBUMIN 2.3 G/DL (3.4-5.0); ALBUMIN/GLOBULIN RATIO 0.6 (1.0-2.7); ALKALINE PHOSPHATASE 97 U/L (46-116); ANION GAP 7 mmol/L (5-15); ASPARTATE AMINO TRANSFERASE 46 U/L (15-37); BILIRUBIN,TOTAL 0.2 MG/DL (0.2-1.0); BLOOD UREA NITROGEN 36 mg/dL (7-18); CALCIUM 8.3 MG/DL (8.5-10.1); CARBON DIOXIDE 29 MMOL/L (21-32); CHLORIDE 105 MMOL/L (98-107); CHOLESTEROL 179 MG/DL (< 200); CREATININE 1.6 MG/DL (0.55-1.30); GAMMA GLUTAMYL TRANSPEPTIDASE 25 U/L (5-85); HDL CHOLESTEROL 63 MG/DL (40-60); PHOSPHORUS 4.1 MG/DL (2.5-4.9); POTASSIUM 4.5 MMOL/L (3.5-5.1); SODIUM 141 MMOL/L (136-145); TRIGLYCERIDES 38 MG/DL (30-150)
[2019-11-30] MEDS: Eliquis 5mg tablet ORAL SCH (08:26)
[2019-11-30] MEDS: Docusate 100mg cap ORAL SCH ×2 (08:27→17:20)
--- NOTE | 2019-11-30 10:42 | Hematology/Onc Progress Note ---
Assessment/Plan Assessment/Plan ASSESSMENT AND PLAN: # Lung cancer recent diagnosis at [facility], with likely spread, stage iv, though requires pet --> recommend outpatient evaluation and rx --> has seen us in the outpatient clinic --> obtain clinic records, do not believe she has started treatment uet --> nc 2l # Upper extremity dvt with edema, & upper extremity cellulitis getting worse --> have started on apixaban # Upper ext cellulitis --> on abx as needed # Dehydration and azotemia --> started on ivf # Hyperkalemia --> kayxelate has been given po # Hypothyroidism, Dr. Honeycutt has been --> synthroid Appreciate consultation and nata RN Subjective Allergies: Coded Allergies: BACLOFEN (Verified Allergy, Severe, ANAPHYLAXIS, 09/12/09) Subjective 3/4: awake, on med surg, no overnight events, nc 2l Objective Objective Current Medications Medications (Trade) Dose Ordered Sig/Shania Route PRN Reason Start Time Stop Time Status Last Admin Dose Admin Acetaminophen (Tylenol) 650 mg Q6H PRN ORAL For Pain 1-3 11/29/19 17:50 12/29/19 17:49 Acetaminophen/ Hydrocodone Bitart ([place] 5/325) 1 tab Q6H PRN ORAL For Pain 4-6 11/29/19 17:50 12/06/19 17:49 Apixaban (Eliquis) 2.5 mg Q12HR ORAL 11/30/19 21:00 12/30/19 20:59 Atorvastatin Calcium (Lipitor) 20 mg BEDTIME ORAL 11/29/19 21:00 12/28/19 20:59 11/29/19 20:24 Carvedilol (Coreg) 3.125 mg EVERY 12 HOURS ORAL 11/29/19 21:00 12/28/19 20:59 11/30/19 08:26 Dextrose (Dextrose 50%) 25 ml Q30M PRN IV Hypoglycemia 11/29/19 18:00 12/29/19 06:29 Dextrose (Dextrose 50%) 50 ml Q30M PRN IV Hypoglycemia 11/29/19 18:00 12/29/19 06:29 Docusate Sodium (Colace) 100 mg TWICE A DAY ORAL 11/29/19 18:00 12/28/19 17:59 11/30/19 08:27 Gabapentin (Neurontin) 300 mg Q8HR ORAL 11/29/19 22:00 12/28/19 21:59 11/30/19 05:40 Hydralazine HCl (Apresoline) 25 mg Q4H PRN ORAL bp over 160 syst 11/29/19 17:50 12/29/19 17:49 Insulin Aspart (NovoLOG) BEFORE MEALS AND HS SUBQ 11/29/19 21:00 12/29/19 06:29 11/29/19 20:24 Levothyroxine Sodium (Synthroid) 25 mcg ONCE IV 11/30/19 10:00 11/30/19 12:00 11/30/19 09:29 Levothyroxine Sodium (Synthroid) 50 mcg DAILY IV 12/01/19 09:00 12/31/19 08:59 Linezolid (Zyvox) 600 mg EVERY 12 HOURS ORAL 11/29/19 17:51 12/04/19 17:50 11/30/19 08:26 Lorazepam (Ativan) 1 mg Q6H PRN ORAL For Anxiety 11/29/19 17:50 12/06/19 17:49 11/29/19 22:20 Mirtazapine (Remeron) 7.5 mg BEDTIME ORAL 11/29/19 21:00 12/29/19 20:59 11/29/19 20:24 Pantoprazole (Protonix) 40 mg Q12HR ORAL 11/29/19 21:00 12/28/19 20:59 11/30/19 08:26 Last 24 Hour Vital Signs Date Time Temp Pulse Resp B/P (MAP) Pulse Ox O2 Delivery O2 Flow Rate FiO2 11/30/19 09:00 Nasal Cannula 2.0 11/30/19 08:26 68 112/62 11/30/19 08:00 97.6 68 16 112/62 (79) 97 11/30/19 04:00 98.0 70 20 104/62 (76) 96 11/30/19 00:00 97.5 69 18 110/66 (81) 96 11/29/19 21:13 Nasal Cannula 2.0 11/29/19 20:25 61 104/55 11/29/19 20:00 97.1 64 18 106/60 (75) 93 11/29/19 16:00 97.9 61 18 104/55 (71) 93 11/29/19 12:00 97.7 69 18 121/72 (88) 93 11/29/19 09:00 63 112/63 11/29/19 09:00 Nasal Cannula 2.0 11/29/19 00:00 63 11/29/19 00:00 96.8 63 20 112/63 (79) 94 11/28/19 21:00 Nasal Cannula 2.0 11/28/19 19:40 87 11/28/19 17:56 Nasal Cannula 2.0 11/28/19 17:35 96.5 60 18 119/66 (83) 96 11/28/19 17:20 96.1 68 17 103/66 96 Nasal Cannula 2.0 11/28/19 13:59 66 18 Nasal Cannula 2.0 11/28/19 13:59 96.1 18 103/66 92 Nasal Cannula 2.0 11/28/19 13:44 96.1 66 18 103/66 (78) 92 Nasal Cannula 2.0 Intake and Output 11/29/19 11/30/19 19:00 07:00 Intake Total 240 ml Balance 240 ml Intake Oral 240 ml # Voids 1 Labs Test 11/28/19 14:17 11/28/19 14:46 11/30/19 05:40 White Blood Count 3.2 K/UL (4.8-10.8) 2.9 K/UL (4.8-10.8) Red Blood Count 3.35 M/UL (4.20-5.40) 3.40 M/UL (4.20-5.40) Hemoglobin 10.2 G/DL (12.0-16.0) 10.4 G/DL (12.0-16.0) Hematocrit 31.0 % (37.0-47.0) 31.5 % (37.0-47.0) Mean Corpuscular Volume 93 FL (80-99) 93 FL (80-99) Mean Corpuscular Hemoglobin 30.4 PG (27.0-31.0) 30.7 PG (27.0-31.0) Mean Corpuscular Hemoglobin Concent 32.8 G/DL (32.0-36.0) 33.1 G/DL (32.0-36.0) Red Cell Distribution Width 14.2 % (11.6-14.8) 14.9 % (11.6-14.8) Platelet Count 202 K/UL (150-450) 205 K/UL (150-450) Mean Platelet Volume 5.1 FL (6.5-10.1) 5.7 FL (6.5-10.1) Neutrophils (%) (Auto) 49.2 % (45.0-75.0) 43.7 % (45.0-75.0) Lymphocytes (%) (Auto) 29.0 % (20.0-45.0) 34.5 % (20.0-45.0) Monocytes (%) (Auto) 8.4 % (1.0-10.0) 9.4 % (1.0-10.0) Eosinophils (%) (Auto) 11.8 % (0.0-3.0) 11.1 % (0.0-3.0) Basophils (%) (Auto) 1.7 % (0.0-2.0) 1.3 % (0.0-2.0) Erythrocyte Sedimentation Rate 60 MM/HR (0-30) Sodium Level 138 MMOL/L (136-145) 141 MMOL/L (136-145) Potassium Level 5.7 MMOL/L (3.5-5.1) 4.5 MMOL/L (3.5-5.1) Chloride Level 103 MMOL/L (98-107) 105 MMOL/L (98-107) Carbon Dioxide Level 27 MMOL/L (21-32) 29 MMOL/L (21-32) Anion Gap 8 mmol/L (5-15) 7 mmol/L (5-15) Blood Urea Nitrogen 39 mg/dL (7-18) 36 mg/dL (7-18) Creatinine 1.5 MG/DL (0.55-1.30) 1.6 MG/DL (0.55-1.30) Estimat Glomerular Filtration Rate 40.4 mL/min (>60) 37.5 mL/min (>60) Glucose Level 129 MG/DL (74-106) 67 MG/DL (74-106) Calcium Level 8.7 MG/DL (8.5-10.1) 8.3 MG/DL (8.5-10.1) Total Bilirubin 0.2 MG/DL (0.2-1.0) 0.2 MG/DL (0.2-1.0) Aspartate Amino Transf (AST/SGOT) 50 U/L (15-37) 46 U/L (15-37) Alanine Aminotransferase (ALT/SGPT) 43 U/L (12-78) 45 U/L (12-78) Alkaline Phosphatase 106 U/L (46-116) 97 U/L (46-116) Troponin I 0.017 ng/mL (0.000-0.056) Pro-B-Type Natriuretic Peptide 305 pg/mL (0-125) 335 pg/mL (0-125) Total Protein 6.4 G/DL (6.4-8.2) 6.3 G/DL (6.4-8.2) Albumin 2.5 G/DL (3.4-5.0) 2.3 G/DL (3.4-5.0) Globulin 3.9 g/dL 4.0 g/dL Albumin/Globulin Ratio 0.6 (1.0-2.7) 0.6 (1.0-2.7) Thyroid Stimulating Hormone (TSH) 42.594 uiU/mL (0.358-3.740) Urine Color Yellow Urine Appearance Clear Urine pH 5 (4.5-8.0) Urine Specific [place] 1.015 (1.005-1.035) Urine Protein Negative (NEGATIVE) Urine Glucose (UA) Negative (NEGATIVE) Urine Ketones Negative (NEGATIVE) Urine Blood Negative (NEGATIVE) Urine Nitrite Negative (NEGATIVE) Urine Bilirubin Negative (NEGATIVE) Urine Urobilinogen Normal MG/DL (0.0-1.0) Urine Leukocyte Esterase Negative (NEGATIVE) Urine RBC 0-2 /HPF (0 - 2) Urine WBC 0-2 /HPF (0 - 2) Urine Squamous Epithelial Cells Occasional /LPF Urine Bacteria None /HPF (NONE) Hemoglobin A1c 8.7 % (4.3-6.0) Uric Acid 8.9 MG/DL (2.6-7.2) Phosphorus Level 4.1 MG/DL (2.5-4.9) Magnesium Level 1.6 MG/DL (1.8-2.4) Gamma Glutamyl Transpeptidase 25 U/L (5-85) C-Reactive Protein, Quantitative 0.7 mg/dL (0.00-0.90) Triglycerides Level 38 MG/DL (30-150) Cholesterol Level 179 MG/DL (< 200) LDL Cholesterol 107 mg/dL (<100) HDL Cholesterol 63 MG/DL (40-60) Cholesterol/HDL Ratio 2.8 (3.3-4.4) Micro Microbiology Date/Time Source Procedure Growth Status 11/29/19 12:41 Arm Right Gram Stain - Final Resulted 11/29/19 12:41 Arm Right Wound Culture - Preliminary NO GROWTH Resulted Height (Feet): 5 Height (Inches): 6.00 Weight (Pounds): 137 Objective Physical Exam General: normal inspection, alert, GCS 15, Chronically Ill Head: atraumatic HEENT: nc, at Resp: normal inspection, lungs clear, normal breath sounds. NC++ Cardiovascular: regular rate, rhythm, no edema Gi: normal inspection, normal bowel sounds, non tender, soft, no guarding, no hernia Genitourinary: no CVA tenderness Musculoskeletal: normal inspection, back normal, normal range of motion Neurologic: alert, motor strength/tone normal, supervisor [employer] III-XII nml as tested, oriented x3, responsive, speech normal, normal inspection Rick Huerta MD Nov 30, 2019 10:42
--- NOTE | 2019-11-30 13:16 | Infectious Diseases Prog Note ---
Assessment/Plan Assessment/Plan IMPRESSION: Recent MRSA sepsis Leukopenia, Eosinophilia, dermatitis, cellulitis of upper extremities, hypertension, COPD, diabetes mellitus, lung cancer, hypothyroidism, history of DVT, dementia with behavioral problem. Acute renal failure RECOMMENDATION: Started on Zyvox since yesterday So far wound culture is negative Subjective ROS Limited/Unobtainable: Yes Constitutional: Reports: no symptoms Respiratory: Reports: no symptoms Musculoskeletal: Reports: no symptoms Allergies: Coded Allergies: BACLOFEN (Verified Allergy, Severe, ANAPHYLAXIS, 09/12/09) Objective Vital Signs Last 24 Hour Vital Signs Date Time Temp Pulse Resp B/P (MAP) Pulse Ox O2 Delivery O2 Flow Rate FiO2 11/30/19 09:00 Nasal Cannula 2.0 11/30/19 08:26 68 112/62 11/30/19 08:00 97.6 68 16 112/62 (79) 97 11/30/19 04:00 98.0 70 20 104/62 (76) 96 11/30/19 00:00 97.5 69 18 110/66 (81) 96 11/29/19 21:13 Nasal Cannula 2.0 11/29/19 20:25 61 104/55 11/29/19 20:00 97.1 64 18 106/60 (75) 93 11/29/19 16:00 97.9 61 18 104/55 (71) 93 Height (Feet): 5 Height (Inches): 6.00 Weight (Pounds): 137 General Appearance: no acute distress HEENT: mucous membranes moist Respiratory/Chest: lungs clear Cardiovascular: normal rate Abdomen: soft, non tender Extremities: other - hands edema Skin: other - hyperkratosis & skin cracks more in upper exterimities Neurologic/Psychiatric: alert, responsive Microbiology Date/Time Source Procedure Growth Status 11/29/19 12:41 Arm Right Gram Stain - Final Resulted 11/29/19 12:41 Arm Right Wound Culture - Preliminary NO GROWTH Resulted Laboratory Tests Test 11/30/19 05:40 White Blood Count 2.9 K/UL (4.8-10.8) L Red Blood Count 3.40 M/UL (4.20-5.40) L Hemoglobin 10.4 G/DL (12.0-16.0) L Hematocrit 31.5 % (37.0-47.0) L Mean Corpuscular Volume 93 FL (80-99) Mean Corpuscular Hemoglobin 30.7 PG (27.0-31.0) Mean Corpuscular Hemoglobin Concent 33.1 G/DL (32.0-36.0) Red Cell Distribution Width 14.9 % (11.6-14.8) H Platelet Count 205 K/UL (150-450) Mean Platelet Volume 5.7 FL (6.5-10.1) L Neutrophils (%) (Auto) 43.7 % (45.0-75.0) L Lymphocytes (%) (Auto) 34.5 % (20.0-45.0) Monocytes (%) (Auto) 9.4 % (1.0-10.0) Eosinophils (%) (Auto) 11.1 % (0.0-3.0) H Basophils (%) (Auto) 1.3 % (0.0-2.0) Sodium Level 141 MMOL/L (136-145) Potassium Level 4.5 MMOL/L (3.5-5.1) Chloride Level 105 MMOL/L (98-107) Carbon Dioxide Level 29 MMOL/L (21-32) Anion Gap 7 mmol/L (5-15) Blood Urea Nitrogen 36 mg/dL (7-18) H Creatinine 1.6 MG/DL (0.55-1.30) H Estimat Glomerular Filtration Rate 37.5 mL/min (>60) Glucose Level 67 MG/DL (74-106) L Hemoglobin A1c 8.7 % (4.3-6.0) H Uric Acid 8.9 MG/DL (2.6-7.2) H Calcium Level 8.3 MG/DL (8.5-10.1) L Phosphorus Level 4.1 MG/DL (2.5-4.9) Magnesium Level 1.6 MG/DL (1.8-2.4) L Total Bilirubin 0.2 MG/DL (0.2-1.0) Gamma Glutamyl Transpeptidase 25 U/L (5-85) Aspartate Amino Transf (AST/SGOT) 46 U/L (15-37) H Alanine Aminotransferase (ALT/SGPT) 45 U/L (12-78) Alkaline Phosphatase 97 U/L (46-116) C-Reactive Protein, Quantitative 0.7 mg/dL (0.00-0.90) Pro-B-Type Natriuretic Peptide 335 pg/mL (0-125) H Total Protein 6.3 G/DL (6.4-8.2) L Albumin 2.3 G/DL (3.4-5.0) L Globulin 4.0 g/dL Albumin/Globulin Ratio 0.6 (1.0-2.7) L Triglycerides Level 38 MG/DL (30-150) Cholesterol Level 179 MG/DL (< 200) LDL Cholesterol 107 mg/dL (<100) H HDL Cholesterol 63 MG/DL (40-60) H Cholesterol/HDL Ratio 2.8 (3.3-4.4) L Current Medications Medications (Trade) Dose Ordered Sig/Shania Route PRN Reason Start Time Stop Time Status Last Admin Dose Admin Acetaminophen (Tylenol) 650 mg Q6H PRN ORAL For Pain 1-3 11/29/19 17:50 12/29/19 17:49 Acetaminophen/ Hydrocodone Bitart (Ames 5/325) 1 tab Q6H PRN ORAL For Pain 4-6 11/29/19 17:50 12/06/19 17:49 Apixaban (Eliquis) 2.5 mg Q12HR ORAL 11/30/19 21:00 12/30/19 20:59 Atorvastatin Calcium (Lipitor) 20 mg BEDTIME ORAL 11/29/19 21:00 12/28/19 20:59 11/29/19 20:24 Carvedilol (Coreg) 3.125 mg EVERY 12 HOURS ORAL 11/29/19 21:00 12/28/19 20:59 11/30/19 08:26 Dextrose (Dextrose 50%) 25 ml Q30M PRN IV Hypoglycemia 11/29/19 18:00 12/29/19 06:29 Dextrose (Dextrose 50%) 50 ml Q30M PRN IV Hypoglycemia 11/29/19 18:00 12/29/19 06:29 Docusate Sodium (Colace) 100 mg TWICE A DAY ORAL 11/29/19 18:00 12/28/19 17:59 11/30/19 08:27 Gabapentin (Neurontin) 300 mg Q8HR ORAL 11/29/19 22:00 12/28/19 21:59 11/30/19 05:40 Hydralazine HCl (Apresoline) 25 mg Q4H PRN ORAL bp over 160 syst 11/29/19 17:50 12/29/19 17:49 Insulin Aspart (NovoLOG) BEFORE MEALS AND HS SUBQ 11/29/19 21:00 12/29/19 06:29 11/29/19 20:24 Levothyroxine Sodium (Synthroid) 50 mcg DAILY IV 12/01/19 09:00 12/31/19 08:59 Linezolid (Zyvox) 600 mg EVERY 12 HOURS ORAL 11/29/19 17:51 12/04/19 17:50 11/30/19 08:26 Lorazepam (Ativan) 1 mg Q6H PRN ORAL For Anxiety 11/29/19 17:50 12/06/19 17:49 11/29/19 22:20 Mirtazapine (Remeron) 7.5 mg BEDTIME ORAL 11/29/19 21:00 12/29/19 20:59 11/29/19 20:24 Pantoprazole (Protonix) 40 mg Q12HR ORAL 11/29/19 21:00 12/28/19 20:59 11/30/19 08:26 Simone Haynes MD Nov 30, 2019 13:16
--- NOTE | 2019-11-30 14:14 | NUR ---
CASE MANAGEMENT:REVIEW SI;LUE CELLULITIS. LUE DVT. EDEMA. HYPOTHYROIDISM. ARF. 98.0 70 20 104/62 96% 2L NC WBC 2.9 BUN 36 CR 1.6 MG 1.6 IS;LEVOTHYROXINE IV QD ELIQUIS PO QD GABAPENTIN PO Q8 HRS PROTONIX PO Q12 HRS ZYVOX PO Q12 HRS ,ED SURG STATUS PLAN OF CARE; CONTINUE IV SYNTHROID DCP;FROM [facility]
--- NOTE | 2019-11-30 14:20 | NUR ---
CHARGE NURSE NOTE: magnesium 1.6. notified.
--- NOTE | 2019-11-30 15:17 | NUR ---
CASE MANAGEMENT:REVIEW SI;EDEMA. LUE CELLULITIS. UPPER EXTREMITY DVT, 98.0 70 20 105/62 96% 2L NC WBC 2.9 BUN 36 CR 1.6 UR ACID 8.9 CA 8.3 IS;ZYVOX PO Q12 HRS PROTONIX PO Q12 HRS COREG PO Q12 HRS GABAPENTIN PO Q8 HRS SYNTHROID IV QD ELIQUIS PO Q12 HRS MED SURG STATUS PLAN OF CARE; CONTINUE IV SYNTHROID DCP;[facility]
--- NOTE | 2019-11-30 16:06 | Nephrology Progress Note ---
Assessment/Plan Problem List: (1) CARYL (acute kidney injury) (2) Electrolyte imbalance (3) Hypothyroidism (4) DMII (diabetes mellitus, type 2) (5) Pacemaker Assessment Renal Failure- HyperKalemia : Aldactone and Lisinopril DM Hypothyroidism : TSH 42 Pacer Plan Today's labs are reviewed Hold Aldactone. Hold lisinopril. Kayexalate p.o. once previously Adjust blood pressure medication. Anemia work-up. 2D echocardiogram. Protonix and stool softener. IV Synthroid. Monitor electrolytes and renal parameters. Skin care. Per orders. Subjective ROS Limited/Unobtainable: No Constitutional: Reports: other - Much more awake and responsive Objective Objective Last 24 Hour Vital Signs Date Time Temp Pulse Resp B/P (MAP) Pulse Ox O2 Delivery O2 Flow Rate FiO2 11/30/19 09:00 Nasal Cannula 2.0 11/30/19 08:26 68 112/62 11/30/19 08:00 97.6 68 16 112/62 (79) 97 11/30/19 04:00 98.0 70 20 104/62 (76) 96 11/30/19 00:00 97.5 69 18 110/66 (81) 96 11/29/19 21:13 Nasal Cannula 2.0 11/29/19 20:25 61 104/55 11/29/19 20:00 97.1 64 18 106/60 (75) 93 Intake and Output 11/29/19 11/30/19 19:00 07:00 Intake Total 240 ml Balance 240 ml Intake Oral 240 ml # Voids 1 Laboratory Tests 11/30/19 05:40: White Blood Count 2.9L, Red Blood Count 3.40L, Hemoglobin 10.4L, Hematocrit 31.5L, Mean Corpuscular Volume 93, Mean Corpuscular Hemoglobin 30.7, Mean Corpuscular Hemoglobin Concent 33.1, Red Cell Distribution Width 14.9H, Platelet Count 205, Mean Platelet Volume 5.7L, Neutrophils (%) (Auto) 43.7L, Lymphocytes (%) (Auto) 34.5, Monocytes (%) (Auto) 9.4, Eosinophils (%) (Auto) 11.1H, Basophils (%) (Auto) 1.3, Sodium Level 141, Potassium Level 4.5, Chloride Level 105, Carbon Dioxide Level 29, Anion Gap 7, Blood Urea Nitrogen 36H, Creatinine 1.6H, Estimat Glomerular Filtration Rate 37.5, Glucose Level 67L , Hemoglobin A1c 8.7H, Uric Acid 8.9H, Calcium Level 8.3L, Phosphorus Level 4.1 , Magnesium Level 1.6L, Total Bilirubin 0.2, Gamma Glutamyl Transpeptidase 25, Aspartate Amino Transf (AST/SGOT) 46H, Alanine Aminotransferase (ALT/SGPT) 45, Alkaline Phosphatase 97, C-Reactive Protein, Quantitative 0.7, Pro-B-Type Natriuretic Peptide 335H, Total Protein 6.3L, Albumin 2.3L, Globulin 4.0, Albumin/Globulin Ratio 0.6L, Triglycerides Level 38, Cholesterol Level 179, LDL Cholesterol 107H, HDL Cholesterol 63H, Cholesterol/HDL Ratio 2.8L Height (Feet): 5 Height (Inches): 6.00 Weight (Pounds): 137 General Appearance: no apparent distress, other - Breakfast Cardiovascular: normal rate Respiratory/Chest: decreased breath sounds Abdomen: soft Objective No other changes Wale Noguera MD Nov 30, 2019 16:06
--- NOTE | 2019-11-30 18:57 | NUR ---
HAND-OFF: Report given to FRANCES.
--- NOTE | 2019-11-30 20:04 | NUR ---
NURSE NOTES: Pt is in bed, awake and verbal. Pt is observed scratching her arms nonstop. Pt is HIGH FALL RISK. Fall precaution is in place, all staff members made aware. Bed alarm on. Bed locked low in position,side rails up and call light within reach. Pt instructed to call for assistance before getting out of bed. Pt will be monitored.
[2019-11-30] MEDS ORDERED: Eliquis 2.5mg tablet ORAL SCH (21:00)
--- NOTE | 2019-11-30 21:20 | NUR ---
NURSE NOTES: Staff heard the pt's room door slam shut, charge nurse and staff immediately rushed to the room. Found patient found on the floor crawling, trying to wipe stool from the floor. Pt is awake and verbal. When asked patient what had happened, patient responded by saying that she wanted to go the bathroom, hit the door with head and fall to the floor.Patient was assisted to the bed and cleaned.Rapid Response Team was called. Vital stable.Temp 98.0 HR 60 BP 119/70 RR 18 O2 sat 98% RA.Monitor shows 100% pacing.Pt denies any pain. Pt able to move all extremities, no bumps, bruises and cuts noted.
--- NOTE | 2019-11-30 21:30 | NUR ---
NURSE NOTES: Post Fall assessment, vitals and neuro checks will be done q 30m mins.
--- NOTE | 2019-11-30 21:40 | NUR ---
TOP PRECIPITATOR OPERATOR HELPER Note: TOP PRECIPITATOR OPERATOR HELPER was called at [phone] by [facility], and notified MD wong. Pt transferred to at . See TOP PRECIPITATOR OPERATOR HELPER documentation form for full report.product tester called due to fall
--- NOTE | 2019-11-30 21:45 | NUR ---
Message left on Dr Ervin service per Dr Blount request asking whether to order a ct head.awaiting response.
--- NOTE | 2019-11-30 22:15 | NUR ---
NURSE NOTES: 2nd message left for Dr Thompson,awaiting response
[2019-11-30] MEDS: Atorvastatin 20mg tab ORAL SCH (22:29)
--- NOTE | 2019-11-30 22:34 | General Progress Note ---
Assessment/Plan Problem List: (1) Edema ICD Codes: R60.9 - Edema, unspecified SNOMED: 005111797, 132181455 (2) Anemia ICD Codes: D64.9 - Anemia, unspecified SNOMED: 927879534 (3) Hypothyroidism ICD Codes: E03.9 - Hypothyroidism, unspecified SNOMED: 95232447 (4) DMII (diabetes mellitus, type 2) ICD Codes: E11.9 - Type 2 diabetes mellitus without complications SNOMED: 87649630 (5) Pacemaker ICD Codes: Z95.0 - Presence of cardiac pacemaker SNOMED: 725358862 (6) Osteoarthritis ICD Codes: M19.90 - Unspecified osteoarthritis, unspecified site SNOMED: 377557631 Status: progressing Assessment/Plan: severe edema and scaly upper extremity dvt of upper exteremity very confused afebrile cachexia favor comfort care lung cancer worsening dementia Subjective ROS Limited/Unobtainable: Yes Allergies: Coded Allergies: BACLOFEN (Verified Allergy, Severe, ANAPHYLAXIS, 09/12/09) Objective Last 24 Hour Vital Signs Date Time Temp Pulse Resp B/P (MAP) Pulse Ox O2 Delivery O2 Flow Rate FiO2 11/30/19 21:24 60 18 98 11/30/19 16:00 98.4 69 18 102/57 (72) 97 11/30/19 09:00 Nasal Cannula 2.0 11/30/19 08:26 68 112/62 11/30/19 08:00 97.6 68 16 112/62 (79) 97 11/30/19 04:00 98.0 70 20 104/62 (76) 96 11/30/19 00:00 97.5 69 18 110/66 (81) 96 Intake and Output 11/29/19 11/30/19 19:00 07:00 Intake Total 240 ml Balance 240 ml Intake Oral 240 ml # Voids 1 Laboratory Tests 11/30/19 05:40: White Blood Count 2.9L, Red Blood Count 3.40L, Hemoglobin 10.4L, Hematocrit 31.5L, Mean Corpuscular Volume 93, Mean Corpuscular Hemoglobin 30.7, Mean Corpuscular Hemoglobin Concent 33.1, Red Cell Distribution Width 14.9H, Platelet Count 205, Mean Platelet Volume 5.7L, Neutrophils (%) (Auto) 43.7L, Lymphocytes (%) (Auto) 34.5, Monocytes (%) (Auto) 9.4, Eosinophils (%) (Auto) 11.1H, Basophils (%) (Auto) 1.3, Sodium Level 141, Potassium Level 4.5, Chloride Level 105, Carbon Dioxide Level 29, Anion Gap 7, Blood Urea Nitrogen 36H, Creatinine 1.6H, Estimat Glomerular Filtration Rate 37.5, Glucose Level 67L , Hemoglobin A1c 8.7H, Uric Acid 8.9H, Calcium Level 8.3L, Phosphorus Level 4.1 , Magnesium Level 1.6L, Total Bilirubin 0.2, Gamma Glutamyl Transpeptidase 25, Aspartate Amino Transf (AST/SGOT) 46H, Alanine Aminotransferase (ALT/SGPT) 45, Alkaline Phosphatase 97, C-Reactive Protein, Quantitative 0.7, Pro-B-Type Natriuretic Peptide 335H, Total Protein 6.3L, Albumin 2.3L, Globulin 4.0, Albumin/Globulin Ratio 0.6L, Triglycerides Level 38, Cholesterol Level 179, LDL Cholesterol 107H, HDL Cholesterol 63H, Cholesterol/HDL Ratio 2.8L Height (Feet): 5 Height (Inches): 6.00 Weight (Pounds): 137 General Appearance: confused Cardiovascular: normal rate Respiratory/Chest: lungs clear Abdomen: soft Olayinka Blount MD Nov 30, 2019 22:34
--- NOTE | 2019-11-30 23:00 | NUR ---
NURSE NOTES: Pt's niece Silvia Jun notified regarding patient's fall.
--- NOTE | 2019-11-30 23:30 | NUR ---
NURSE NOTES: Chayo Morillo , Dr. Pérez and Dr. Edwards notified regarding patient's fall. Dr. Haynes also notified that pt's temp 92F, no orders received.
--- NOTE | 2019-11-30 23:55 | NUR ---
HAND-OFF: Report given to [facility].Informed that patient is S/P fall. Informed [facility] that pt needs to have neuro check and vital signs done every hour. Head CT is ordered, pt needs STAT Head CT, radiology notified. Pt is awake and verbal during transfer.All belongings transferred with patient. There is a sitter by bedside to prevent falls and monitor patient.
[2019-12-01] VITALS (10 sets, daily range): BP systolic 91–135; BP diastolic 46–88
--- NOTE | 2019-12-01 | NUR ---
NURSE NOTES: Pt transferred from M/S, s/p fall, per pt hit the head. Awake, A/O x2-3. Appropriate speech, answers questions. radiation monitor applied, A-paced on vehicle monitor technician, pacemaker at L upper chest noted. was able to move her arms and legs bilaterally, active ROM noted, but weak. On room air with no sob. Bilateral upper ext swollen and scaly. VS WNL, except T of 92 noted, lucía hugger applied, will continue to monitor. Sitter at the bedside. Bed in the lowest position and locked. Side rails up x3. Bed alarm is on. Call light within reach. Will continue to monitor.
[2019-12-01 00:22] LABS: HEMATOCRIT 31.2 % (37.0-47.0); HEMOGLOBIN 10.4 G/DL (12.0-16.0); MEAN CORPUSCULAR VOLUME 92 FL (80-99); PLATELET COUNT 191 K/UL (150-450); RED BLOOD COUNT 3.39 M/UL (4.20-5.40); RED CELL DISTRIBUTION WIDTH 14.4 % (11.6-14.8); WHITE BLOOD COUNT 2.8 K/UL (4.8-10.8)
[2019-12-01 00:26] LABS: ANION GAP 6 mmol/L (5-15); BLOOD UREA NITROGEN 37 mg/dL (7-18); CALCIUM 8.4 MG/DL (8.5-10.1); CARBON DIOXIDE 29 MMOL/L (21-32); CHLORIDE 106 MMOL/L (98-107); CREATININE 1.6 MG/DL (0.55-1.30); POTASSIUM 4.4 MMOL/L (3.5-5.1); SODIUM 141 MMOL/L (136-145)
[2019-12-01 00:33] LABS: ALANINE AMINOTRANSFERASE 55 U/L (12-78); ALBUMIN 2.3 G/DL (3.4-5.0); ALBUMIN/GLOBULIN RATIO 0.6 (1.0-2.7); ALKALINE PHOSPHATASE 102 U/L (46-116); ASPARTATE AMINO TRANSFERASE 66 U/L (15-37); BILIRUBIN,TOTAL 0.2 MG/DL (0.2-1.0)
--- NOTE | 2019-12-01 01:00 | NUR ---
NURSE NOTES: pt sleeping in the bed, arousable. Able to answer questions. A/O x3. No abrasion or bruise noted. No bumps on head noted. Denies any pain from fall but on nilson hands when touched. Will continue to monitor.
--- NOTE | 2019-12-01 01:07 | Diagnostic Imaging Report ---
Indication: Headache Technique: Contiguous 5 mm thick transaxial imaging of the head obtained in a Siemens Sensation [address] scanner. Soft tissue and bone windows generated. Automatic Exposure Control was utilized. Total Dose length Product (DLP): 1152.4mGycm CT Dose Index Volume (CTDIvol): 53.4 mGy Comparison: none Findings: There is moderate prominence of the ventricles, basal cisterns, and cerebral sulci consistent with atrophy. Moderate, nonspecific, white matter hypoattenuation is noted throughout the brain consistent with chronic small vessel disease. There is encephalomalacia in the right posterior parietal lobe. There is no midline shift, edema, acute hemorrhage, mass effect, or abnormal extra-axial fluid collections. Bones are unremarkable. Impression: No acute intracranial bleed, mass effect or edema. 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 Moderate atrophy of the brain. Evidence of chronic small vessel disease involving white matter tracts. [facility] has communicated the preliminary results to the Emergency Department. Their findings are largely concordant with this report. The CT scanner at [facility] is accredited by the [employer] and the scans are performed using dose optimization techniques as appropriate to a performed exam including Automatic Exposure control.
[2019-12-01] MEDS ORDERED: HydrALAZINE 25mg tab ORAL PRN (02:00)
--- NOTE | 2019-12-01 02:00 | NUR ---
NURSE NOTES: Pt sleeping in the bed, arousable, no acute change noted at this time. No changes in mental status noted. T 93.2 noted lucía abida still in placed. Will continue to monitor.
--- NOTE | 2019-12-01 02:44 | NUR ---
NURSE NOTES: pt sleeping in the bed, calm, arousable. SB on front desk monitor with HR of 57 noted. No acute neuro symptom noted. Head CT result negative noted. VS WNL. T 97.2 at this time with Jeanette hugger on. Will continue to monitor.
--- NOTE | 2019-12-01 04:00 | NUR ---
NURSE NOTES: pt sleeping in bed, was agitated when asked for AM lab draw, refused. Benefits and risks explained, still refused. No symptoms of neurological changes. VS WNL, T of 97.4 noted. Will continue to monitor.
--- NOTE | 2019-12-01 05:26 | NUR ---
NURSE NOTES: Bed bath given. No neurological changes noted. Able to do ROM. AV paced on air sampling and monitoring. No acute distress noted at this time. VS WNL. Will continue to monitor.
--- NOTE | 2019-12-01 05:57 | NUR ---
NURSE NOTES: Noted BS of 54. No signs of clumsiness, difficulty speaking, slurred speech, or change in mental status noted. Alexander juice given per protocol, pt tolerating po input. Will check BS in 15 mins.
[2019-12-01] MEDS ORDERED: LORazepam 1mg tab ORAL PRN (06:00)
[2019-12-01] MEDS ORDERED: HYDROcodone/Acetamin 5/325 tab ORAL PRN (06:00)
--- NOTE | 2019-12-01 06:12 | Hematology/Onc Progress Note ---
Assessment/Plan Assessment/Plan ASSESSMENT AND PLAN: # Lung cancer recent diagnosis at [facility], with likely spread, stage iv, though requires pet --> recommend outpatient evaluation and rx --> has seen us in the outpatient clinic --> obtain clinic records, do not believe she has started treatment uet --> nc 2l # Upper extremity dvt with edema, & upper extremity cellulitis getting worse --> have started on apixaban # Upper ext cellulitis --> on abx as needed # Dehydration and azotemia --> started on ivf # Hyperkalemia --> kayxelate has been given po # Hypothyroidism, Dr. Honeycutt has been --> synthroid # DM2 --> poorly controlled as per endo Appreciate consultation and nata HURD Subjective Constitutional: Denies: no symptoms, chills, fever, malaise, weakness, other Cardiovascular: Denies: no symptoms, chest pain, edema, irregular heart rate, lightheadedness, palpitations, syncope, other Respiratory: Denies: no symptoms, cough, shortness of breath, SOB with excertion, SOB at rest, sputum, wheezing, other Gastrointestinal/Abdominal: Denies: no symptoms, abdomen distended, abdominal pain, black stools, tarry stools, blood in stool, constipated, diarrhea, difficulty swallowing, nausea, poor appetite, poor fluid intake, rectal bleeding , vomiting, other Neurologic/Psychiatric: Denies: no symptoms, anxiety, depressed, emotional problems, headache, numbness, paresthesia, pre-existing deficit, seizure, tingling, tremors, weakness, other Endocrine: Denies: no symptoms, excessive sweating, flushing, intolerance to cold, intolerance to heat, increased hunger, increased thirst, increased urine, unexplained weight gain, unexplained weight loss, other Hematologic/Lymphatic: Denies: no symptoms, anemia, easy bleeding, easy bruising, adenopathy, other Allergies: Coded Allergies: BACLOFEN (Verified Allergy, Severe, ANAPHYLAXIS, 09/12/09) Subjective 3/4: awake, on med surg, no overnight events, nc 2l 3/5: with fall last night, temp remains low 97.5f, nata Hurd Juan, and lactic acid ordered, ct brain neg Objective Objective Current Medications Medications (Trade) Dose Ordered Sig/Shania Route PRN Reason Start Time Stop Time Status Last Admin Dose Admin Acetaminophen (Tylenol) 650 mg Q6H PRN ORAL For Pain 1-3 12/01/19 06:00 12/29/19 17:49 Acetaminophen/ Hydrocodone Bitart ([place] 5/325) 1 tab Q6H PRN ORAL For Pain 4-6 12/01/19 06:00 12/06/19 17:49 Apixaban (Eliquis) 2.5 mg Q12HR ORAL 12/01/19 09:00 12/30/19 20:59 Atorvastatin Calcium (Lipitor) 20 mg BEDTIME ORAL 12/01/19 21:00 12/28/19 20:59 Carvedilol (Coreg) 3.125 mg EVERY 12 HOURS ORAL 12/01/19 09:00 12/28/19 20:59 Dextrose (Dextrose 50%) 25 ml Q30M PRN IV Hypoglycemia 12/01/19 01:00 12/29/19 06:29 Dextrose (Dextrose 50%) 50 ml Q30M PRN IV Hypoglycemia 12/01/19 01:00 12/29/19 06:29 Docusate Sodium (Colace) 100 mg TWICE A DAY ORAL 12/01/19 09:00 12/28/19 17:59 Gabapentin (Neurontin) 300 mg Q8HR ORAL 12/01/19 06:00 12/28/19 21:59 Hydralazine HCl (Apresoline) 25 mg Q4H PRN ORAL bp over 160 syst 12/01/19 02:00 12/29/19 17:49 Insulin Aspart (NovoLOG) BEFORE MEALS AND HS SUBQ 12/01/19 06:30 12/29/19 06:29 Levothyroxine Sodium (Synthroid) 50 mcg DAILY IV 12/01/19 09:00 12/31/19 08:59 Linezolid (Zyvox) 600 mg EVERY 12 HOURS ORAL 12/01/19 09:00 12/04/19 17:50 Lorazepam (Ativan) 1 mg Q6H PRN ORAL For Anxiety 12/01/19 06:00 12/06/19 17:49 Mirtazapine (Remeron) 7.5 mg BEDTIME ORAL 12/01/19 21:00 12/29/19 20:59 Pantoprazole (Protonix) 40 mg Q12HR ORAL 12/01/19 09:00 4/1/20 20:59 Last 24 Hour Vital Signs Date Time Temp Pulse Resp B/P (MAP) Pulse Ox O2 Delivery O2 Flow Rate FiO2 12/01/19 04:33 60 12/01/19 04:00 Room Air 12/01/19 04:00 97.5 65 20 123/88 (100) 98 12/01/19 03:00 97.5 57 20 91/57 (68) 100 12/01/19 02:00 92.0 61 20 115/71 (86) 100 12/01/19 01:00 93.2 57 20 135/79 (97) 100 12/01/19 00:41 60 12/01/19 00:00 92.0 61 20 115/71 (86) 100 12/01/19 00:00 Room Air 11/30/19 23:30 91.9 60 20 117/70 (86) 98 11/30/19 23:00 91.9 60 18 116/68 (84) 98 11/30/19 22:29 60 119/70 11/30/19 22:00 98.0 60 18 117/69 (85) 98 11/30/19 21:30 98.0 60 20 116/69 (85) 98 11/30/19 21:24 60 18 98 11/30/19 21:05 98.0 98 11/30/19 21:00 98.0 60 20 119/70 (86) 98 11/30/19 21:00 Room Air 11/30/19 20:00 98.1 60 20 106/56 (73) 96 11/30/19 16:00 98.4 69 18 102/57 (72) 97 11/30/19 09:00 Nasal Cannula 2.0 11/30/19 08:26 68 112/62 11/30/19 08:00 97.6 68 16 112/62 (79) 97 11/30/19 04:00 98.0 70 20 104/62 (76) 96 11/30/19 00:00 97.5 69 18 110/66 (81) 96 11/29/19 21:13 Nasal Cannula 2.0 11/29/19 20:25 61 104/55 11/29/19 20:00 97.1 64 18 106/60 (75) 93 11/29/19 16:00 97.9 61 18 104/55 (71) 93 11/29/19 12:00 97.7 69 18 121/72 (88) 93 11/29/19 09:00 63 112/63 11/29/19 09:00 Nasal Cannula 2.0 Intake and Output 11/30/19 12/01/19 19:00 07:00 Intake Total 240 ml Balance 240 ml Intake Oral 240 ml # Voids 2 # Bowel Movements 1 Labs Test 11/28/19 14:17 11/28/19 14:46 11/30/19 05:40 11/30/19 23:50 White Blood Count 3.2 K/UL (4.8-10.8) 2.9 K/UL (4.8-10.8) 2.8 K/UL (4.8-10.8) Red Blood Count 3.35 M/UL (4.20-5.40) 3.40 M/UL (4.20-5.40) 3.39 M/UL (4.20-5.40) Hemoglobin 10.2 G/DL (12.0-16.0) 10.4 G/DL (12.0-16.0) 10.4 G/DL (12.0-16.0) Hematocrit 31.0 % (37.0-47.0) 31.5 % (37.0-47.0) 31.2 % (37.0-47.0) Mean Corpuscular Volume 93 FL (80-99) 93 FL (80-99) 92 FL (80-99) Mean Corpuscular Hemoglobin 30.4 PG (27.0-31.0) 30.7 PG (27.0-31.0) 30.8 PG (27.0-31.0) Mean Corpuscular Hemoglobin Concent 32.8 G/DL (32.0-36.0) 33.1 G/DL (32.0-36.0) 33.4 G/DL (32.0-36.0) Red Cell Distribution Width 14.2 % (11.6-14.8) 14.9 % (11.6-14.8) 14.4 % (11.6-14.8) Platelet Count 202 K/UL (150-450) 205 K/UL (150-450) 191 K/UL (150-450) Mean Platelet Volume 5.1 FL (6.5-10.1) 5.7 FL (6.5-10.1) 5.4 FL (6.5-10.1) Neutrophils (%) (Auto) 49.2 % (45.0-75.0) 43.7 % (45.0-75.0) % (45.0-75.0) Lymphocytes (%) (Auto) 29.0 % (20.0-45.0) 34.5 % (20.0-45.0) % (20.0-45.0) Monocytes (%) (Auto) 8.4 % (1.0-10.0) 9.4 % (1.0-10.0) % (1.0-10.0) Eosinophils (%) (Auto) 11.8 % (0.0-3.0) 11.1 % (0.0-3.0) % (0.0-3.0) Basophils (%) (Auto) 1.7 % (0.0-2.0) 1.3 % (0.0-2.0) % (0.0-2.0) Erythrocyte Sedimentation Rate 60 MM/HR (0-30) Sodium Level 138 MMOL/L (136-145) 141 MMOL/L (136-145) 141 MMOL/L (136-145) Potassium Level 5.7 MMOL/L (3.5-5.1) 4.5 MMOL/L (3.5-5.1) 4.4 MMOL/L (3.5-5.1) Chloride Level 103 MMOL/L (98-107) 105 MMOL/L (98-107) 106 MMOL/L (98-107) Carbon Dioxide Level 27 MMOL/L (21-32) 29 MMOL/L (21-32) 29 MMOL/L (21-32) Anion Gap 8 mmol/L (5-15) 7 mmol/L (5-15) 6 mmol/L (5-15) Blood Urea Nitrogen 39 mg/dL (7-18) 36 mg/dL (7-18) 37 mg/dL (7-18) Creatinine 1.5 MG/DL (0.55-1.30) 1.6 MG/DL (0.55-1.30) 1.6 MG/DL (0.55-1.30) Estimat Glomerular Filtration Rate 40.4 mL/min (>60) 37.5 mL/min (>60) 37.5 mL/min (>60) Glucose Level 129 MG/DL (74-106) 67 MG/DL (74-106) 141 MG/DL (74-106) Calcium Level 8.7 MG/DL (8.5-10.1) 8.3 MG/DL (8.5-10.1) 8.4 MG/DL (8.5-10.1) Total Bilirubin 0.2 MG/DL (0.2-1.0) 0.2 MG/DL (0.2-1.0) 0.2 MG/DL (0.2-1.0) Aspartate Amino Transf (AST/SGOT) 50 U/L (15-37) 46 U/L (15-37) 66 U/L (15-37) Alanine Aminotransferase (ALT/SGPT) 43 U/L (12-78) 45 U/L (12-78) 55 U/L (12-78) Alkaline Phosphatase 106 U/L (46-116) 97 U/L (46-116) 102 U/L (46-116) Troponin I 0.017 ng/mL (0.000-0.056) Pro-B-Type Natriuretic Peptide 305 pg/mL (0-125) 335 pg/mL (0-125) Total Protein 6.4 G/DL (6.4-8.2) 6.3 G/DL (6.4-8.2) 6.0 G/DL (6.4-8.2) Albumin 2.5 G/DL (3.4-5.0) 2.3 G/DL (3.4-5.0) 2.3 G/DL (3.4-5.0) Globulin 3.9 g/dL 4.0 g/dL 3.7 g/dL Albumin/Globulin Ratio 0.6 (1.0-2.7) 0.6 (1.0-2.7) 0.6 (1.0-2.7) Thyroid Stimulating Hormone (TSH) 42.594 uiU/mL (0.358-3.740) Urine Color Yellow Urine Appearance Clear Urine pH 5 (4.5-8.0) Urine Specific Allen 1.015 (1.005-1.035) Urine Protein Negative (NEGATIVE) Urine Glucose (UA) Negative (NEGATIVE) Urine Ketones Negative (NEGATIVE) Urine Blood Negative (NEGATIVE) Urine Nitrite Negative (NEGATIVE) Urine Bilirubin Negative (NEGATIVE) Urine Urobilinogen Normal MG/DL (0.0-1.0) Urine Leukocyte Esterase Negative (NEGATIVE) Urine RBC 0-2 /HPF (0 - 2) Urine WBC 0-2 /HPF (0 - 2) Urine Squamous Epithelial Cells Occasional /LPF Urine Bacteria None /HPF (NONE) Hemoglobin A1c 8.7 % (4.3-6.0) Uric Acid 8.9 MG/DL (2.6-7.2) Phosphorus Level 4.1 MG/DL (2.5-4.9) Magnesium Level 1.6 MG/DL (1.8-2.4) Gamma Glutamyl Transpeptidase 25 U/L (5-85) C-Reactive Protein, Quantitative 0.7 mg/dL (0.00-0.90) Triglycerides Level 38 MG/DL (30-150) Cholesterol Level 179 MG/DL (< 200) LDL Cholesterol 107 mg/dL (<100) HDL Cholesterol 63 MG/DL (40-60) Cholesterol/HDL Ratio 2.8 (3.3-4.4) Height (Feet): 5 Height (Inches): 6.00 Weight (Pounds): 137 Objective Physical Exam General: normal inspection, alert, GCS 15, Chronically Ill Head: atraumatic HEENT: nc, at Resp: normal inspection, lungs clear, normal breath sounds. NC++ Cardiovascular: regular rate, rhythm, no edema Gi: normal inspection, normal bowel sounds, non tender, soft, no guarding, no hernia Genitourinary: no CVA tenderness Musculoskeletal: normal inspection, back normal, normal range of motion Neurologic: alert, motor strength/tone normal, wildlife officer III-XII nml as tested, oriented x3, responsive, speech normal, normal inspection Rick Huerta MD Dec 01, 2019 06:12
--- NOTE | 2019-12-01 06:13 | NUR ---
NURSE NOTES: BS now [address] Honeycutt regarding BS 54 and orange juice was given, no new order received. Will continue to monitor.
[2019-12-01] MEDS ORDERED: NovoLOG Insulin Flexpen SUBQ SCH (06:30)
--- NOTE | 2019-12-01 07:09 | NUR ---
NURSE NOTES: Received report FABIOLA Patrick,patient eating,sitter assisting patient,able to eat by herself,I greeted her she said good afternoon,will give report to FABIOLA Lincoln
--- NOTE | 2019-12-01 07:25 | General Progress Note ---
Assessment/Plan Problem List: (1) Hypothyroid ICD Codes: E03.9 - Hypothyroidism, unspecified SNOMED: 67025522 (2) COPD (chronic obstructive pulmonary disease) ICD Codes: J44.9 - Chronic obstructive pulmonary disease, unspecified SNOMED: 37402360 (3) DMII (diabetes mellitus, type 2) ICD Codes: E11.9 - Type 2 diabetes mellitus without complications SNOMED: 81289675 Status: progressing Assessment/Plan: no need for Levemir or Starlix for now continue Novolog sliding scale and reduce dosage DC Levothyroxine IV start Levothyroxine 100 mcg oral daily Subjective Allergies: Coded Allergies: BACLOFEN (Verified Allergy, Severe, ANAPHYLAXIS, 09/12/09) Subjective events noted had a hypoglycemic episode this morning Item Value Date Time Bedside Blood Glucose 94 mg/dl 12/01/19 0611 Bedside Blood Glucose 189 mg/dl H 11/30/19 2234 Bedside Blood Glucose 131 mg/dl H 11/30/19 1637 Bedside Blood Glucose 97 mg/dl 11/30/19 0620 Objective Last 24 Hour Vital Signs Date Time Temp Pulse Resp B/P (MAP) Pulse Ox O2 Delivery O2 Flow Rate FiO2 12/01/19 04:33 60 12/01/19 04:00 Room Air 12/01/19 04:00 97.5 65 20 123/88 (100) 98 12/01/19 03:00 97.5 57 20 91/57 (68) 100 12/01/19 02:00 92.0 61 20 115/71 (86) 100 12/01/19 01:00 93.2 57 20 135/79 (97) 100 12/01/19 00:41 60 12/01/19 00:00 92.0 61 20 115/71 (86) 100 12/01/19 00:00 Room Air 11/30/19 23:30 91.9 60 20 117/70 (86) 98 11/30/19 23:00 91.9 60 18 116/68 (84) 98 11/30/19 22:29 60 119/70 11/30/19 22:00 98.0 60 18 117/69 (85) 98 11/30/19 21:30 98.0 60 20 116/69 (85) 98 11/30/19 21:24 60 18 98 11/30/19 21:05 98.0 98 11/30/19 21:00 98.0 60 20 119/70 (86) 98 11/30/19 21:00 Room Air 11/30/19 20:00 98.1 60 20 106/56 (73) 96 11/30/19 16:00 98.4 69 18 102/57 (72) 97 11/30/19 09:00 Nasal Cannula 2.0 11/30/19 08:26 68 112/62 11/30/19 08:00 97.6 68 16 112/62 (79) 97 Intake and Output 11/30/19 12/01/19 19:00 07:00 Intake Total 240 ml 120 ml Balance 240 ml 120 ml Intake Oral 240 ml 120 ml # Voids 2 # Bowel Movements 1 Laboratory Tests 11/30/19 23:50: White Blood Count 2.8L, Red Blood Count 3.39L, Hemoglobin 10.4L, Hematocrit 31.2L, Mean Corpuscular Volume 92, Mean Corpuscular Hemoglobin 30.8, Mean Corpuscular Hemoglobin Concent 33.4, Red Cell Distribution Width 14.4, Platelet Count 191, Mean Platelet Volume 5.4L, Neutrophils (%) (Auto) , Lymphocytes (%) ( Auto) , Monocytes (%) (Auto) , Eosinophils (%) (Auto) , Basophils (%) (Auto) , Sodium Level 141, Potassium Level 4.4, Chloride Level 106, Carbon Dioxide Level 29, Anion Gap 6, Blood Urea Nitrogen 37H, Creatinine 1.6H, Estimat Glomerular Filtration Rate 37.5, Glucose Level 141H, Calcium Level 8.4L, Total Bilirubin 0.2, Aspartate Amino Transf (AST/SGOT) 66H, Alanine Aminotransferase (ALT/SGPT) 55, Alkaline Phosphatase 102, Total Protein 6.0L, Albumin 2.3L, Globulin 3.7, Albumin/Globulin Ratio 0.6L 12/01/19 06:30: White Blood Count [Pending], Red Blood Count [Pending], Hemoglobin [Pending], Hematocrit [Pending], Mean Corpuscular Volume [Pending], Mean Corpuscular Hemoglobin [Pending], Mean Corpuscular Hemoglobin Concent [Pending], Red Cell Distribution Width [Pending], Platelet Count [Pending], Mean Platelet Volume [ Pending], Neutrophils (%) (Auto) [Pending], Lymphocytes (%) (Auto) [Pending], Monocytes (%) (Auto) [Pending], Eosinophils (%) (Auto) [Pending], Basophils (%) (Auto) [Pending] Height (Feet): 5 Height (Inches): 6.00 Weight (Pounds): 137 General Appearance: no apparent distress Neck: normal alignment Cardiovascular: normal rate Respiratory/Chest: crackles/rales Abdomen: normal bowel sounds Objective Current Medications Medications (Trade) Dose Ordered Sig/Shania Route PRN Reason Start Time Stop Time Status Last Admin Dose Admin Acetaminophen (Tylenol) 650 mg Q6H PRN ORAL For Pain 1-3 12/01/19 06:00 12/29/19 17:49 Acetaminophen/ Hydrocodone Bitart ([place] 5/325) 1 tab Q6H PRN ORAL For Pain 4-6 12/01/19 06:00 12/06/19 17:49 Apixaban (Eliquis) 2.5 mg Q12HR ORAL 12/01/19 09:00 12/30/19 20:59 Atorvastatin Calcium (Lipitor) 20 mg BEDTIME ORAL 12/01/19 21:00 12/28/19 20:59 Carvedilol (Coreg) 3.125 mg EVERY 12 HOURS ORAL 12/01/19 09:00 12/28/19 20:59 Dextrose (Dextrose 50%) 25 ml Q30M PRN IV Hypoglycemia 12/01/19 01:00 12/29/19 06:29 Dextrose (Dextrose 50%) 50 ml Q30M PRN IV Hypoglycemia 12/01/19 01:00 12/29/19 06:29 Docusate Sodium (Colace) 100 mg TWICE A DAY ORAL 12/01/19 09:00 12/28/19 17:59 Gabapentin (Neurontin) 300 mg Q8HR ORAL 12/01/19 06:00 12/28/19 21:59 Hydralazine HCl (Apresoline) 25 mg Q4H PRN ORAL bp over 160 syst 12/01/19 02:00 12/29/19 17:49 Insulin Aspart (NovoLOG) BEFORE MEALS AND HS SUBQ 12/01/19 06:30 12/29/19 06:29 Levothyroxine Sodium (Synthroid) 50 mcg DAILY IV 12/01/19 09:00 12/31/19 08:59 Linezolid (Zyvox) 600 mg EVERY 12 HOURS ORAL 12/01/19 09:00 12/04/19 17:50 Lorazepam (Ativan) 1 mg Q6H PRN ORAL For Anxiety 12/01/19 06:00 12/06/19 17:49 Mirtazapine (Remeron) 7.5 mg BEDTIME ORAL 12/01/19 21:00 12/29/19 20:59 Pantoprazole (Protonix) 40 mg Q12HR ORAL 12/01/19 09:00 12/28/19 20:59 Natalio Honeycutt MD Dec 01, 2019 07:25
--- NOTE | 2019-12-01 07:28 | NUR ---
HAND-OFF: Report given to FABIOLA Iqbal. No distress noted at this time. No signs of change in mental status.
--- NOTE | 2019-12-01 08:00 | NUR ---
NURSE NOTES: Received change of shift report from Elvis/Farida RN. Pt is awake, alert, oriented to name, restless, noncompliant, attempting to get out of bed. Pt currently has TOOL PLANER SET UP OPERATOR/sitter at bedside. Pt is on room air at 98% O2Sat and no respiratory distress. AV-Paced per tele monitor. Pt has left AC #20G, saline locked, patent/intact. Abdomen is round, soft, nontender to touch with hypoactive bowel sounds. Skin has bilateral upper and lower extremity skin breakdown as abrasion/rash, currently open to air. HOB at high painter's, bed locked, three side rails up, and call light is placed within easy reach. Will continue with plan of care.
[2019-12-01 08:51] LABS: BASOPHILS % (AUTO) 2.2 % (0.0-2.0); EOSINOPHILS % (AUTO) 9.5 % (0.0-3.0); HEMATOCRIT 30.4 % (37.0-47.0); HEMOGLOBIN 9.9 G/DL (12.0-16.0); LYMPHOCYTES % (AUTO) 23.8 % (20.0-45.0); MEAN CORPUSCULAR VOLUME 94 FL (80-99); MONOCYTES % (AUTO) 9.7 % (1.0-10.0); NEUTROPHILS % (AUTO) 54.9 % (45.0-75.0); PLATELET COUNT 200 K/UL (150-450); RED BLOOD COUNT 3.24 M/UL (4.20-5.40); RED CELL DISTRIBUTION WIDTH 14.8 % (11.6-14.8); WHITE BLOOD COUNT 3.5 K/UL (4.8-10.8)
[2019-12-01] MEDS: Docusate 100mg cap ORAL SCH ×2 (09:15→18:27)
[2019-12-01] MEDS: Eliquis 2.5mg tablet ORAL SCH ×2 (09:15→20:01)
--- NOTE | 2019-12-01 10:00 | NUR ---
NURSE NOTES: AM meds were administered. VS remain stable. Pt is afebrile. Denies any pain or discomfort at this time.
--- NOTE | 2019-12-01 10:17 | Infectious Diseases Prog Note ---
Assessment/Plan Assessment/Plan IMPRESSION: Recent MRSA sepsis Leukopenia, Eosinophilia, dermatitis, cellulitis of upper extremities, hypertension, COPD, diabetes mellitus, lung cancer, hypothyroidism, history of DVT, dementia with behavioral problem. Acute renal failure Hypoglycemic episode RECOMMENDATION: Continue Zyvox since yesterday wound culture : Staph aureus Case was D/W Primary MD& RN Subjective ROS Limited/Unobtainable: Yes Constitutional: Reports: other - was tranferred to step down unit, hypothermia last night Neurologic: Reports: other - was found on floor Endocrine: Reports: other - hypoglycemia Allergies: Coded Allergies: BACLOFEN (Verified Allergy, Severe, ANAPHYLAXIS, 09/12/09) Objective Vital Signs Last 24 Hour Vital Signs Date Time Temp Pulse Resp B/P (MAP) Pulse Ox O2 Delivery O2 Flow Rate FiO2 12/01/19 08:00 98.7 74 20 93/52 (66) 98 12/01/19 04:33 60 12/01/19 04:00 Room Air 12/01/19 04:00 97.5 65 20 123/88 (100) 98 12/01/19 03:00 97.5 57 20 91/57 (68) 100 12/01/19 02:00 92.0 61 20 115/71 (86) 100 12/01/19 01:00 93.2 57 20 135/79 (97) 100 12/01/19 00:41 60 12/01/19 00:00 92.0 61 20 115/71 (86) 100 12/01/19 00:00 Room Air 11/30/19 23:30 91.9 60 20 117/70 (86) 98 11/30/19 23:00 91.9 60 18 116/68 (84) 98 11/30/19 22:29 60 119/70 11/30/19 22:00 98.0 60 18 117/69 (85) 98 11/30/19 21:30 98.0 60 20 116/69 (85) 98 11/30/19 21:24 60 18 98 11/30/19 21:05 98.0 98 11/30/19 21:00 98.0 60 20 119/70 (86) 98 11/30/19 21:00 Room Air 11/30/19 20:00 98.1 60 20 106/56 (73) 96 11/30/19 16:00 98.4 69 18 102/57 (72) 97 Height (Feet): 5 Height (Inches): 6.00 Weight (Pounds): 137 General Appearance: no acute distress HEENT: mucous membranes moist Respiratory/Chest: lungs clear Cardiovascular: normal rate Abdomen: soft, non tender Extremities: other - edema of hands Skin: other - dermatitis & cracks on skin of arms Neurologic/Psychiatric: other - sleeping Microbiology Date/Time Source Procedure Growth Status 11/29/19 12:41 Arm Right Gram Stain - Final Resulted 11/29/19 12:41 Wound Culture - Preliminary Staphylococcus Aureus Resulted Laboratory Tests Test 11/30/19 23:50 12/01/19 07:45 White Blood Count 2.8 K/UL (4.8-10.8) L 3.5 K/UL (4.8-10.8) L Red Blood Count 3.39 M/UL (4.20-5.40) L 3.24 M/UL (4.20-5.40) L Hemoglobin 10.4 G/DL (12.0-16.0) L 9.9 G/DL (12.0-16.0) L Hematocrit 31.2 % (37.0-47.0) L 30.4 % (37.0-47.0) L Mean Corpuscular Volume 92 FL (80-99) 94 FL (80-99) Mean Corpuscular Hemoglobin 30.8 PG (27.0-31.0) 30.6 PG (27.0-31.0) Mean Corpuscular Hemoglobin Concent 33.4 G/DL (32.0-36.0) 32.6 G/DL (32.0-36.0) Red Cell Distribution Width 14.4 % (11.6-14.8) 14.8 % (11.6-14.8) Platelet Count 191 K/UL (150-450) 200 K/UL (150-450) Mean Platelet Volume 5.4 FL (6.5-10.1) L 5.2 FL (6.5-10.1) L Neutrophils (%) (Auto) % (45.0-75.0) 54.9 % (45.0-75.0) Lymphocytes (%) (Auto) % (20.0-45.0) 23.8 % (20.0-45.0) Monocytes (%) (Auto) % (1.0-10.0) 9.7 % (1.0-10.0) Eosinophils (%) (Auto) % (0.0-3.0) 9.5 % (0.0-3.0) H Basophils (%) (Auto) % (0.0-2.0) 2.2 % (0.0-2.0) H Sodium Level 141 MMOL/L (136-145) Potassium Level 4.4 MMOL/L (3.5-5.1) Chloride Level 106 MMOL/L (98-107) Carbon Dioxide Level 29 MMOL/L (21-32) Anion Gap 6 mmol/L (5-15) Blood Urea Nitrogen 37 mg/dL (7-18) H Creatinine 1.6 MG/DL (0.55-1.30) H Estimat Glomerular Filtration Rate 37.5 mL/min (>60) Glucose Level 141 MG/DL (74-106) H Calcium Level 8.4 MG/DL (8.5-10.1) L Total Bilirubin 0.2 MG/DL (0.2-1.0) Aspartate Amino Transf (AST/SGOT) 66 U/L (15-37) H Alanine Aminotransferase (ALT/SGPT) 55 U/L (12-78) Alkaline Phosphatase 102 U/L (46-116) Total Protein 6.0 G/DL (6.4-8.2) L Albumin 2.3 G/DL (3.4-5.0) L Globulin 3.7 g/dL Albumin/Globulin Ratio 0.6 (1.0-2.7) L Lactic Acid Level 1.80 mmol/L (0.4-2.0) Current Medications Medications (Trade) Dose Ordered Sig/Shania Route PRN Reason Start Time Stop Time Status Last Admin Dose Admin Acetaminophen (Tylenol) 650 mg Q6H PRN ORAL For Pain 1-3 12/01/19 06:00 12/29/19 17:49 Acetaminophen/ Hydrocodone Bitart ([place] 5/325) 1 tab Q6H PRN ORAL For Pain 4-6 12/01/19 06:00 12/06/19 17:49 Apixaban (Eliquis) 2.5 mg Q12HR ORAL 12/01/19 09:00 12/30/19 20:59 12/01/19 09:15 Atorvastatin Calcium (Lipitor) 20 mg BEDTIME ORAL 12/01/19 21:00 12/28/19 20:59 Carvedilol (Coreg) 3.125 mg EVERY 12 HOURS ORAL 12/01/19 09:00 12/28/19 20:59 Dextrose (Dextrose 50%) 25 ml Q30M PRN IV Hypoglycemia 12/01/19 07:30 12/31/19 07:29 Dextrose (Dextrose 50%) 50 ml Q30M PRN IV Hypoglycemia 12/01/19 07:30 12/31/19 07:29 Docusate Sodium (Colace) 100 mg TWICE A DAY ORAL 12/01/19 09:00 12/28/19 17:59 12/01/19 09:15 Gabapentin (Neurontin) 300 mg Q8HR ORAL 12/01/19 06:00 12/28/19 21:59 Hydralazine HCl (Apresoline) 25 mg Q4H PRN ORAL bp over 160 syst 12/01/19 02:00 12/29/19 17:49 Insulin Aspart (NovoLOG) BEFORE MEALS AND HS SUBQ 12/01/19 11:30 12/31/19 11:29 Levothyroxine Sodium (Synthroid) 100 mcg DAILY@0630 ORAL 12/01/19 07:30 12/31/19 07:29 12/01/19 09:14 Linezolid (Zyvox) 600 mg EVERY 12 HOURS ORAL 12/01/19 09:00 12/04/19 17:50 12/01/19 09:14 Lorazepam (Ativan) 1 mg Q6H PRN ORAL For Anxiety 12/01/19 06:00 12/06/19 17:49 Mirtazapine (Remeron) 7.5 mg BEDTIME ORAL 12/01/19 21:00 12/29/19 20:59 Pantoprazole (Protonix) 40 mg Q12HR ORAL 12/01/19 09:00 12/28/19 20:59 12/01/19 09:15 Simone Haynes MD Dec 01, 2019 10:17
[2019-12-01] MEDS: NovoLOG Insulin Flexpen SUBQ SCH ×3 (11:30→20:02)
--- NOTE | 2019-12-01 12:11 | NUR ---
NURSE NOTES: BG is 113, no coverage per sliding scale. Pt remains afebrile with stable VS. Pt is currently asleep with no signs/symptoms of any distress noted. Pt was seen by wound care nurse, and recommendation received for Amlactic topical BID to affected areas on skin.
--- NOTE | 2019-12-01 13:17 | Nephrology Progress Note ---
Assessment/Plan Problem List: (1) CARYL (acute kidney injury) (2) Electrolyte imbalance (3) Hypothyroidism (4) DMII (diabetes mellitus, type 2) (5) Pacemaker Assessment Renal Failure- HyperKalemia : Aldactone and Lisinopril DM Hypothyroidism : TSH 42 Pacer Plan Patient had a fall yesterday. No obvious injury. CAT scan negative No labs for today. Albumin bolus for low blood pressure Hold Aldactone. Hold lisinopril. Kayexalate p.o. once previously Adjust blood pressure medication. Anemia work-up. 2D echocardiogram. Protonix and stool softener. Synthroid is now changed to p.o. Monitor electrolytes and renal parameters. Skin care. Per orders. Subjective ROS Limited/Unobtainable: No Constitutional: Reports: malaise Objective Objective Last 24 Hour Vital Signs Date Time Temp Pulse Resp B/P (MAP) Pulse Ox O2 Delivery O2 Flow Rate FiO2 12/01/19 08:00 Room Air 12/01/19 08:00 74 12/01/19 08:00 98.7 74 20 93/52 (66) 98 12/01/19 04:33 60 12/01/19 04:00 Room Air 12/01/19 04:00 97.5 65 20 123/88 (100) 98 12/01/19 03:00 97.5 57 20 91/57 (68) 100 12/01/19 02:00 92.0 61 20 115/71 (86) 100 12/01/19 01:00 93.2 57 20 135/79 (97) 100 12/01/19 00:41 60 12/01/19 00:00 92.0 61 20 115/71 (86) 100 12/01/19 00:00 Room Air 11/30/19 23:30 91.9 60 20 117/70 (86) 98 11/30/19 23:00 91.9 60 18 116/68 (84) 98 11/30/19 22:29 60 119/70 11/30/19 22:00 98.0 60 18 117/69 (85) 98 11/30/19 21:30 98.0 60 20 116/69 (85) 98 11/30/19 21:24 60 18 98 11/30/19 21:05 98.0 98 11/30/19 21:00 98.0 60 20 119/70 (86) 98 11/30/19 21:00 Room Air 11/30/19 20:00 98.1 60 20 106/56 (73) 96 11/30/19 16:00 98.4 69 18 102/57 (72) 97 Intake and Output 11/30/19 12/01/19 19:00 07:00 Intake Total 240 ml 120 ml Balance 240 ml 120 ml Intake Oral 240 ml 120 ml # Voids 2 # Bowel Movements 1 Laboratory Tests 11/30/19 23:50: White Blood Count 2.8L, Red Blood Count 3.39L, Hemoglobin 10.4L, Hematocrit 31.2L, Mean Corpuscular Volume 92, Mean Corpuscular Hemoglobin 30.8, Mean Corpuscular Hemoglobin Concent 33.4, Red Cell Distribution Width 14.4, Platelet Count 191, Mean Platelet Volume 5.4L, Neutrophils (%) (Auto) , Lymphocytes (%) ( Auto) , Monocytes (%) (Auto) , Eosinophils (%) (Auto) , Basophils (%) (Auto) , Sodium Level 141, Potassium Level 4.4, Chloride Level 106, Carbon Dioxide Level 29, Anion Gap 6, Blood Urea Nitrogen 37H, Creatinine 1.6H, Estimat Glomerular Filtration Rate 37.5, Glucose Level 141H, Calcium Level 8.4L, Total Bilirubin 0.2, Aspartate Amino Transf (AST/SGOT) 66H, Alanine Aminotransferase (ALT/SGPT) 55, Alkaline Phosphatase 102, Total Protein 6.0L, Albumin 2.3L, Globulin 3.7, Albumin/Globulin Ratio 0.6L 12/01/19 07:45: White Blood Count 3.5L, Red Blood Count 3.24L, Hemoglobin 9.9L, Hematocrit 30.4L , Mean Corpuscular Volume 94, Mean Corpuscular Hemoglobin 30.6, Mean Corpuscular Hemoglobin Concent 32.6, Red Cell Distribution Width 14.8, Platelet Count 200, Mean Platelet Volume 5.2L, Neutrophils (%) (Auto) 54.9, Lymphocytes ( %) (Auto) 23.8, Monocytes (%) (Auto) 9.7, Eosinophils (%) (Auto) 9.5H, Basophils (%) (Auto) 2.2H, Lactic Acid Level 1.80 Height (Feet): 5 Height (Inches): 6.00 Weight (Pounds): 137 General Appearance: no apparent distress Objective No other changes Wale Noguera MD Dec 01, 2019 13:17
--- NOTE | 2019-12-01 15:00 | NUR ---
NURSE NOTES: Pt was administered Albumin 5% per MD order. VS remain stable. Pt is asleep, awakens to voice, attempts to get out of bed, sitter is at bedside.
--- NOTE | 2019-12-01 17:44 | NUR ---
NURSE NOTES: Pt is awake, family/visitor is at bedside. Pt is still attempting to get out of bed; sitter remains at bedside. VS remain stable.
[2019-12-01] MEDS: Lac Hydrin 12% Lotion 8oz TOPIC SCH (18:51)
--- NOTE | 2019-12-01 19:33 | NUR ---
NURSE NOTES: Received report from FABIOLA Lincoln, pt. in bed awake, A/O x's 2-3- able to make needs known, no signs or symptoms of acute cardiac or respiratory distress noted, bed in lowest position and call light within easy reach, bed alarm on and safety brakes engaged, pt. appears to be sating well on room air, pt. appears to be resting comfortably-with sitter at bedside, Left AC 20G IV intact and patent, safety measures continued, will continue with plan of care.
--- NOTE | 2019-12-01 20:47 | General Progress Note ---
Assessment/Plan Problem List: (1) Edema ICD Codes: R60.9 - Edema, unspecified SNOMED: 440982826, 810313048 (2) Anemia ICD Codes: D64.9 - Anemia, unspecified SNOMED: 953716075 (3) Hypothyroidism ICD Codes: E03.9 - Hypothyroidism, unspecified SNOMED: 24870188 (4) DMII (diabetes mellitus, type 2) ICD Codes: E11.9 - Type 2 diabetes mellitus without complications SNOMED: 74597961 (5) Pacemaker ICD Codes: Z95.0 - Presence of cardiac pacemaker SNOMED: 345839452 (6) Osteoarthritis ICD Codes: M19.90 - Unspecified osteoarthritis, unspecified site SNOMED: 026295655 Status: progressing Assessment/Plan: s/p fall and head injury ordred ct ordered sitter from beginning check sugar poor prognosis very confused afebrile cachexia favor comfort care lung cancer worsening dementia Subjective ROS Limited/Unobtainable: Yes Allergies: Coded Allergies: BACLOFEN (Verified Allergy, Severe, ANAPHYLAXIS, 09/12/09) Objective Last 24 Hour Vital Signs Date Time Temp Pulse Resp B/P (MAP) Pulse Ox O2 Delivery O2 Flow Rate FiO2 12/01/19 20:00 71 117/69 12/01/19 16:00 98.7 83 20 97/46 (63) 97 12/01/19 16:00 70 12/01/19 16:00 Room Air 12/01/19 12:00 98.6 81 21 112/62 (79) 95 12/01/19 12:00 Room Air 12/01/19 11:35 75 12/01/19 08:00 Room Air 12/01/19 08:00 74 12/01/19 08:00 98.7 74 20 93/52 (66) 98 12/01/19 04:33 60 12/01/19 04:00 Room Air 12/01/19 04:00 97.5 65 20 123/88 (100) 98 12/01/19 03:00 97.5 57 20 91/57 (68) 100 12/01/19 02:00 92.0 61 20 115/71 (86) 100 12/01/19 01:00 93.2 57 20 135/79 (97) 100 12/01/19 00:41 60 12/01/19 00:00 92.0 61 20 115/71 (86) 100 12/01/19 00:00 Room Air 11/30/19 23:30 91.9 60 20 117/70 (86) 98 11/30/19 23:00 91.9 60 18 116/68 (84) 98 11/30/19 22:29 60 119/70 11/30/19 22:00 98.0 60 18 117/69 (85) 98 11/30/19 21:30 98.0 60 20 116/69 (85) 98 11/30/19 21:24 60 18 98 11/30/19 21:05 98.0 98 11/30/19 21:00 98.0 60 20 119/70 (86) 98 11/30/19 21:00 Room Air Intake and Output 11/30/19 12/01/19 19:00 07:00 Intake Total 240 ml 120 ml Balance 240 ml 120 ml Intake Oral 240 ml 120 ml # Voids 2 # Bowel Movements 1 Laboratory Tests 11/30/19 23:50: White Blood Count 2.8L, Red Blood Count 3.39L, Hemoglobin 10.4L, Hematocrit 31.2L, Mean Corpuscular Volume 92, Mean Corpuscular Hemoglobin 30.8, Mean Corpuscular Hemoglobin Concent 33.4, Red Cell Distribution Width 14.4, Platelet Count 191, Mean Platelet Volume 5.4L, Neutrophils (%) (Auto) , Lymphocytes (%) ( Auto) , Monocytes (%) (Auto) , Eosinophils (%) (Auto) , Basophils (%) (Auto) , Sodium Level 141, Potassium Level 4.4, Chloride Level 106, Carbon Dioxide Level 29, Anion Gap 6, Blood Urea Nitrogen 37H, Creatinine 1.6H, Estimat Glomerular Filtration Rate 37.5, Glucose Level 141H, Calcium Level 8.4L, Total Bilirubin 0.2, Aspartate Amino Transf (AST/SGOT) 66H, Alanine Aminotransferase (ALT/SGPT) 55, Alkaline Phosphatase 102, Total Protein 6.0L, Albumin 2.3L, Globulin 3.7, Albumin/Globulin Ratio 0.6L 12/01/19 07:45: White Blood Count 3.5L, Red Blood Count 3.24L, Hemoglobin 9.9L, Hematocrit 30.4L , Mean Corpuscular Volume 94, Mean Corpuscular Hemoglobin 30.6, Mean Corpuscular Hemoglobin Concent 32.6, Red Cell Distribution Width 14.8, Platelet Count 200, Mean Platelet Volume 5.2L, Neutrophils (%) (Auto) 54.9, Lymphocytes ( %) (Auto) 23.8, Monocytes (%) (Auto) 9.7, Eosinophils (%) (Auto) 9.5H, Basophils (%) (Auto) 2.2H, Lactic Acid Level 1.80 Height (Feet): 5 Height (Inches): 6.00 Weight (Pounds): 137 Neck: supple Cardiovascular: normal rate Respiratory/Chest: lungs clear Olayinka Blount MD Dec 01, 2019 20:47
[2019-12-01] MEDS ORDERED: Atorvastatin 20mg tab ORAL SCH (21:00)
[2019-12-02] VITALS: BP 121/67
[2019-12-02 04:00] VITALS: BP 146/75
--- NOTE | 2019-12-02 05:00 | Progress Note ---
DATE: 12/01/2019 SUBJECTIVE: The patient is on one-to-one sitter. Apparently, she was going to the restroom last night, hit her head against the door and was found sitting on a floor. CT of the head negative. The patient is the same. Mental condition is unchanged since previous encounter. The patient has episodes of anxiety and agitation. Manageable. MENTAL STATUS EXAMINATION: The patient is alert and oriented times self, place, and situation. Mood is anxious. Affect is flat. Thought process, there is a paucity of thought content. Thought content, no suicidal or homicidal ideation. Cognition is impaired. Insight and judgment is impaired. ASSESSMENT: 1. Dementia. 2. Anxiety disorder. PLAN: 1. Continue Remeron. 2. Discussed with the primary care physician ____ Dr. Blount. Lupe Edwards M.D. DR: JESSICA JOB#: [id number] CC:
[2019-12-02] MEDS: NovoLOG Insulin Flexpen SUBQ SCH ×2 (05:51→12:13)
--- NOTE | 2019-12-02 06:17 | Hematology/Onc Progress Note ---
Assessment/Plan Assessment/Plan ASSESSMENT AND PLAN: # Lung cancer recent diagnosis at [facility], with likely spread, stage iv, though requires pet --> recommend outpatient evaluation and rx --> has seen us in the outpatient clinic --> obtain clinic records, do not believe she has started treatment uet --> nc 2l --> given other combordities favor comfort care # Upper extremity dvt with edema, & upper extremity cellulitis getting worse --> have started on apixaban # Upper ext cellulitis --> on abx as needed # Dehydration and azotemia --> started on ivf # Hyperkalemia --> kayxelate has been given po # Hypothyroidism, Dr. Honeycutt has been --> synthroid # DM2 --> poorly controlled as per endo # Dvt ppx fercho Appreciate consultation and nata RN Subjective Constitutional: Denies: no symptoms, chills, fever, malaise, weakness, other HEENT: Denies: no symptoms, eye pain, blurred vision, tearing, double vision, ear pain, ear discharge, nose pain, nose congestion, throat pain, throat swelling, mouth pain, mouth swelling, other Cardiovascular: Denies: no symptoms, chest pain, edema, irregular heart rate, lightheadedness, palpitations, syncope, other Respiratory: Denies: no symptoms, cough, shortness of breath, SOB with excertion, SOB at rest, sputum, wheezing, other Gastrointestinal/Abdominal: Denies: no symptoms, abdomen distended, abdominal pain, black stools, tarry stools, blood in stool, constipated, diarrhea, difficulty swallowing, nausea, poor appetite, poor fluid intake, rectal bleeding , vomiting, other Genitourinary: Denies: no symptoms, burning, discharge, frequency, flank pain, hematuria, incontinence, pain, urgency, other Neurologic/Psychiatric: Denies: no symptoms, anxiety, depressed, emotional problems, headache, numbness, paresthesia, pre-existing deficit, seizure, tingling, tremors, weakness, other Endocrine: Denies: no symptoms, excessive sweating, flushing, intolerance to cold, intolerance to heat, increased hunger, increased thirst, increased urine, unexplained weight gain, unexplained weight loss, other Hematologic/Lymphatic: Denies: no symptoms, anemia, easy bleeding, easy bruising, adenopathy, other Allergies: Coded Allergies: BACLOFEN (Verified Allergy, Severe, ANAPHYLAXIS, 09/12/09) Subjective 11/29: awake, on med surg, no overnight events, nc 2l 11/30: with fall last night, temp remains low 97.5f, dw Rn Juan, and lactic acid ordered, ct brain neg 12/01: no bleeding or chills, remains agitated with sitter, no bleeding, hr better Objective Objective Current Medications Medications (Trade) Dose Ordered Sig/Shania Route PRN Reason Start Time Stop Time Status Last Admin Dose Admin Acetaminophen (Tylenol) 650 mg Q6H PRN ORAL For Pain 1-3 12/01/19 06:00 12/29/19 17:49 Acetaminophen/ Hydrocodone Bitart ([place] 5/325) 1 tab Q6H PRN ORAL For Pain -12/01/19 06:00 12/06/19 17:49 Ammonium Lactate (Lac Hydrin) 1 applic TWICE A DAY TOPIC 12/01/19 18:00 12/31/19 17:59 12/01/19 18:51 Apixaban (Eliquis) 2.5 mg Q12HR ORAL 12/01/19 09:00 12/30/19 20:59 12/01/19 20:01 Atorvastatin Calcium (Lipitor) 20 mg BEDTIME ORAL 12/01/19 21:00 12/28/19 20:59 12/01/19 20:02 Carvedilol (Coreg) 3.125 mg EVERY 12 HOURS ORAL 12/01/19 09:00 12/28/19 20:59 12/01/19 20:00 Dextrose (Dextrose 50%) 25 ml Q30M PRN IV Hypoglycemia 12/01/19 07:30 12/31/19 07:29 Dextrose (Dextrose 50%) 50 ml Q30M PRN IV Hypoglycemia 12/01/19 07:30 12/31/19 07:29 Docusate Sodium (Colace) 100 mg TWICE A DAY ORAL 12/01/19 09:00 12/28/19 17:59 12/01/19 18:27 Gabapentin (Neurontin) 300 mg Q8HR ORAL 12/01/19 06:00 12/28/19 21:59 12/02/19 05:50 Hydralazine HCl (Apresoline) 25 mg Q4H PRN ORAL bp over 160 syst 12/01/19 02:00 12/29/19 17:49 Insulin Aspart (NovoLOG) BEFORE MEALS AND HS SUBQ 12/01/19 11:30 12/31/19 11:29 12/02/19 05:51 Levothyroxine Sodium (Synthroid) 100 mcg DAILY@0630 ORAL 12/01/19 07:30 12/31/19 07:29 12/02/19 05:50 Linezolid (Zyvox) 600 mg EVERY 12 HOURS ORAL 12/01/19 09:00 12/04/19 17:50 12/01/19 20:00 Lorazepam (Ativan) 1 mg Q6H PRN ORAL For Anxiety 12/01/19 06:00 12/06/19 17:49 Mirtazapine (Remeron) 7.5 mg BEDTIME ORAL 12/01/19 21:00 12/29/19 20:59 12/01/19 20:02 Pantoprazole (Protonix) 40 mg Q12HR ORAL 12/01/19 09:00 12/28/19 20:59 12/01/19 20:00 Last 24 Hour Vital Signs Date Time Temp Pulse Resp B/P (MAP) Pulse Ox O2 Delivery O2 Flow Rate FiO2 12/02/19 04:00 Room Air 12/02/19 04:00 97.7 65 20 146/75 (98) 96 12/02/19 03:39 64 12/02/19 00:00 Room Air 12/02/19 00:00 96.4 69 18 121/67 (85) 95 12/01/19 23:27 59 12/01/19 20:00 71 117/69 12/01/19 20:00 96.2 71 20 117/69 (85) 95 12/01/19 20:00 63 12/01/19 20:00 Room Air 12/01/19 16:00 98.7 83 20 97/46 (63) 97 12/01/19 16:00 70 12/01/19 16:00 Room Air 12/01/19 12:00 98.6 81 21 112/62 (79) 95 12/01/19 12:00 Room Air 12/01/19 11:35 75 12/01/19 08:00 Room Air 12/01/19 08:00 74 12/01/19 08:00 98.7 74 20 93/52 (66) 98 12/01/19 04:33 60 12/01/19 04:00 Room Air 12/01/19 04:00 97.5 65 20 123/88 (100) 98 12/01/19 03:00 97.5 57 20 91/57 (68) 100 12/01/19 02:00 92.0 61 20 115/71 (86) 100 12/01/19 01:00 93.2 57 20 135/79 (97) 100 12/01/19 00:41 60 12/01/19 00:00 92.0 61 20 115/71 (86) 100 12/01/19 00:00 Room Air 11/30/19 23:30 91.9 60 20 117/70 (86) 98 11/30/19 23:00 91.9 60 18 116/68 (84) 98 11/30/19 22:29 60 119/70 11/30/19 22:00 98.0 60 18 117/69 (85) 98 11/30/19 21:30 98.0 60 20 116/69 (85) 98 11/30/19 21:24 60 18 98 11/30/19 21:05 98.0 98 11/30/19 21:00 98.0 60 20 119/70 (86) 98 11/30/19 21:00 Room Air 11/30/19 20:00 98.1 60 20 106/56 (73) 96 11/30/19 16:00 98.4 69 18 102/57 (72) 97 11/30/19 09:00 Nasal Cannula 2.0 11/30/19 08:26 68 112/62 11/30/19 08:00 97.6 68 16 112/62 (79) 97 Intake and Output 12/01/19 12/02/19 19:00 07:00 Intake Total 740 ml Output Total 400 ml Balance 740 ml -400 ml Intake Oral 240 ml IV Total 500 ml Output Urine Total 400 ml # Voids 2 Labs Test 11/30/19 05:40 11/30/19 23:50 12/01/19 07:45 White Blood Count 2.9 K/UL (4.8-10.8) 2.8 K/UL (4.8-10.8) 3.5 K/UL (4.8-10.8) Red Blood Count 3.40 M/UL (4.20-5.40) 3.39 M/UL (4.20-5.40) 3.24 M/UL (4.20-5.40) Hemoglobin 10.4 G/DL (12.0-16.0) 10.4 G/DL (12.0-16.0) 9.9 G/DL (12.0-16.0) Hematocrit 31.5 % (37.0-47.0) 31.2 % (37.0-47.0) 30.4 % (37.0-47.0) Mean Corpuscular Volume 93 FL (80-99) 92 FL (80-99) 94 FL (80-99) Mean Corpuscular Hemoglobin 30.7 PG (27.0-31.0) 30.8 PG (27.0-31.0) 30.6 PG (27.0-31.0) Mean Corpuscular Hemoglobin Concent 33.1 G/DL (32.0-36.0) 33.4 G/DL (32.0-36.0) 32.6 G/DL (32.0-36.0) Red Cell Distribution Width 14.9 % (11.6-14.8) 14.4 % (11.6-14.8) 14.8 % (11.6-14.8) Platelet Count 205 K/UL (150-450) 191 K/UL (150-450) 200 K/UL (150-450) Mean Platelet Volume 5.7 FL (6.5-10.1) 5.4 FL (6.5-10.1) 5.2 FL (6.5-10.1) Neutrophils (%) (Auto) 43.7 % (45.0-75.0) % (45.0-75.0) 54.9 % (45.0-75.0) Lymphocytes (%) (Auto) 34.5 % (20.0-45.0) % (20.0-45.0) 23.8 % (20.0-45.0) Monocytes (%) (Auto) 9.4 % (1.0-10.0) % (1.0-10.0) 9.7 % (1.0-10.0) Eosinophils (%) (Auto) 11.1 % (0.0-3.0) % (0.0-3.0) 9.5 % (0.0-3.0) Basophils (%) (Auto) 1.3 % (0.0-2.0) % (0.0-2.0) 2.2 % (0.0-2.0) Sodium Level 141 MMOL/L (136-145) 141 MMOL/L (136-145) Potassium Level 4.5 MMOL/L (3.5-5.1) 4.4 MMOL/L (3.5-5.1) Chloride Level 105 MMOL/L (98-107) 106 MMOL/L (98-107) Carbon Dioxide Level 29 MMOL/L (21-32) 29 MMOL/L (21-32) Anion Gap 7 mmol/L (5-15) 6 mmol/L (5-15) Blood Urea Nitrogen 36 mg/dL (7-18) 37 mg/dL (7-18) Creatinine 1.6 MG/DL (0.55-1.30) 1.6 MG/DL (0.55-1.30) Estimat Glomerular Filtration Rate 37.5 mL/min (>60) 37.5 mL/min (>60) Glucose Level 67 MG/DL (74-106) 141 MG/DL (74-106) Hemoglobin A1c 8.7 % (4.3-6.0) Uric Acid 8.9 MG/DL (2.6-7.2) Calcium Level 8.3 MG/DL (8.5-10.1) 8.4 MG/DL (8.5-10.1) Phosphorus Level 4.1 MG/DL (2.5-4.9) Magnesium Level 1.6 MG/DL (1.8-2.4) Total Bilirubin 0.2 MG/DL (0.2-1.0) 0.2 MG/DL (0.2-1.0) Gamma Glutamyl Transpeptidase 25 U/L (5-85) Aspartate Amino Transf (AST/SGOT) 46 U/L (15-37) 66 U/L (15-37) Alanine Aminotransferase (ALT/SGPT) 45 U/L (12-78) 55 U/L (12-78) Alkaline Phosphatase 97 U/L (46-116) 102 U/L (46-116) C-Reactive Protein, Quantitative 0.7 mg/dL (0.00-0.90) Pro-B-Type Natriuretic Peptide 335 pg/mL (0-125) Total Protein 6.3 G/DL (6.4-8.2) 6.0 G/DL (6.4-8.2) Albumin 2.3 G/DL (3.4-5.0) 2.3 G/DL (3.4-5.0) Globulin 4.0 g/dL 3.7 g/dL Albumin/Globulin Ratio 0.6 (1.0-2.7) 0.6 (1.0-2.7) Triglycerides Level 38 MG/DL (30-150) Cholesterol Level 179 MG/DL (< 200) LDL Cholesterol 107 mg/dL (<100) HDL Cholesterol 63 MG/DL (40-60) Cholesterol/HDL Ratio 2.8 (3.3-4.4) Lactic Acid Level 1.80 mmol/L (0.4-2.0) Height (Feet): 5 Height (Inches): 6.00 Weight (Pounds): 137 Objective Physical Exam General: normal inspection, alert, GCS 15, Chronically Ill Head: atraumatic HEENT: nc, at Resp: normal inspection, lungs clear, normal breath sounds. NC++ Cardiovascular: regular rate, rhythm, no edema Gi: normal inspection, normal bowel sounds, non tender, soft, no guarding, no hernia Genitourinary: no CVA tenderness Musculoskeletal: normal inspection, back normal, normal range of motion Neurologic: alert, motor strength/tone normal, technical assistant III-XII nml as tested, oriented x3, responsive, speech normal, normal inspection Rick Huerta MD Dec 02, 2019 06:17
--- NOTE | 2019-12-02 06:23 | General Progress Note ---
Assessment/Plan Problem List: (1) Hypothyroid ICD Codes: E03.9 - Hypothyroidism, unspecified SNOMED: 37891324 (2) COPD (chronic obstructive pulmonary disease) ICD Codes: J44.9 - Chronic obstructive pulmonary disease, unspecified SNOMED: 46226080 (3) DMII (diabetes mellitus, type 2) ICD Codes: E11.9 - Type 2 diabetes mellitus without complications SNOMED: 83495260 Status: progressing Assessment/Plan: no need for Levemir or Starlix for now continue Novolog sliding scale and reduce dosage continue Levothyroxine 100 mcg oral daily Subjective ROS Limited/Unobtainable: Yes Allergies: Coded Allergies: BACLOFEN (Verified Allergy, Severe, ANAPHYLAXIS, 09/12/09) Subjective events noted glucose values are stable without hypoglycemia Item Value Date Time Bedside Blood Glucose 147 mg/dl H 12/02/19 0551 Bedside Blood Glucose 146 mg/dl H 12/01/192001 Bedside Blood Glucose 130 mg/dl H 12/01/19 1630 Bedside Blood Glucose 113 mg/dl 12/01/19 1130 Bedside Blood Glucose 94 mg/dl 12/01/19 0611 Objective Last 24 Hour Vital Signs Date Time Temp Pulse Resp B/P (MAP) Pulse Ox O2 Delivery O2 Flow Rate FiO2 12/02/19 04:00 Room Air 12/02/19 04:00 97.7 65 20 146/75 (98) 96 12/02/19 03:39 64 12/02/19 00:00 Room Air 12/02/19 00:00 96.4 69 18 121/67 (85) 95 12/01/19 23:27 59 12/01/19 20:00 71 117/69 12/01/19 20:00 96.2 71 20 117/69 (85) 95 12/01/19 20:00 63 12/01/19 20:00 Room Air 12/01/19 16:00 98.7 83 20 97/46 (63) 97 12/01/19 16:00 70 12/01/19 16:00 Room Air 12/01/19 12:00 98.6 81 21 112/62 (79) 95 12/01/19 12:00 Room Air 12/01/19 11:35 75 12/01/19 08:00 Room Air 12/01/19 08:00 74 12/01/19 08:00 98.7 74 20 93/52 (66) 98 Intake and Output 12/01/19 12/02/19 19:00 07:00 Intake Total 740 ml Output Total 400 ml Balance 740 ml -400 ml Intake Oral 240 ml IV Total 500 ml Output Urine Total 400 ml # Voids 2 Laboratory Tests 12/01/19 07:45: White Blood Count 3.5L, Red Blood Count 3.24L, Hemoglobin 9.9L, Hematocrit 30.4L , Mean Corpuscular Volume 94, Mean Corpuscular Hemoglobin 30.6, Mean Corpuscular Hemoglobin Concent 32.6, Red Cell Distribution Width 14.8, Platelet Count 200, Mean Platelet Volume 5.2L, Neutrophils (%) (Auto) 54.9, Lymphocytes ( %) (Auto) 23.8, Monocytes (%) (Auto) 9.7, Eosinophils (%) (Auto) 9.5H, Basophils (%) (Auto) 2.2H, Lactic Acid Level 1.80 Height (Feet): 5 Height (Inches): 6.00 Weight (Pounds): 137 General Appearance: no apparent distress Neck: normal alignment Cardiovascular: normal rate Respiratory/Chest: chest wall non-tender Abdomen: normal bowel sounds Objective Current Medications Medications (Trade) Dose Ordered Sig/Shania Route PRN Reason Start Time Stop Time Status Last Admin Dose Admin Acetaminophen (Tylenol) 650 mg Q6H PRN ORAL For Pain 1-3 12/01/19 06:00 12/29/19 17:49 Acetaminophen/ Hydrocodone Bitart ([place] 5/325) 1 tab Q6H PRN ORAL For Pain 4-6 12/01/19 06:00 12/06/19 17:49 Ammonium Lactate (Lac Hydrin) 1 applic TWICE A DAY TOPIC 12/01/19 18:00 12/31/19 17:59 12/01/19 18:51 Apixaban (Eliquis) 2.5 mg Q12HR ORAL 12/01/19 09:00 12/30/19 20:59 12/01/19 20:01 Atorvastatin Calcium (Lipitor) 20 mg BEDTIME ORAL 12/01/19 21:00 12/28/19 20:59 12/01/19 20:02 Carvedilol (Coreg) 3.125 mg EVERY 12 HOURS ORAL 12/01/19 09:00 12/28/19 20:59 12/01/19 20:00 Dextrose (Dextrose 50%) 25 ml Q30M PRN IV Hypoglycemia 12/01/19 07:30 12/31/19 07:29 Dextrose (Dextrose 50%) 50 ml Q30M PRN IV Hypoglycemia 12/01/19 07:30 12/31/19 07:29 Docusate Sodium (Colace) 100 mg TWICE A DAY ORAL 12/01/19 09:00 12/28/19 17:59 12/01/19 18:27 Gabapentin (Neurontin) 300 mg Q8HR ORAL 12/01/19 06:00 12/28/19 21:59 12/02/19 05:50 Hydralazine HCl (Apresoline) 25 mg Q4H PRN ORAL bp over 160 syst 12/01/19 02:00 12/29/19 17:49 Insulin Aspart (NovoLOG) BEFORE MEALS AND HS SUBQ 12/01/19 11:30 12/31/19 11:29 12/02/19 05:51 Levothyroxine Sodium (Synthroid) 100 mcg DAILY@0630 ORAL 12/01/19 07:30 12/31/19 07:29 12/02/19 05:50 Linezolid (Zyvox) 600 mg EVERY 12 HOURS ORAL 12/01/19 09:00 12/04/19 17:50 12/01/19 20:00 Lorazepam (Ativan) 1 mg Q6H PRN ORAL For Anxiety 12/01/19 06:00 12/06/19 17:49 Mirtazapine (Remeron) 7.5 mg BEDTIME ORAL 12/01/19 21:00 12/29/19 20:59 12/01/19 20:02 Pantoprazole (Protonix) 40 mg Q12HR ORAL 12/01/19 09:00 12/28/19 20:59 12/01/19 20:00 Natalio Honeycutt MD Dec 02, 2019 06:23
[2019-12-02 07:06] LABS: BASOPHILS % (AUTO) 0.9 % (0.0-2.0); EOSINOPHILS % (AUTO) 12.1 % (0.0-3.0); HEMATOCRIT 32.8 % (37.0-47.0); HEMOGLOBIN 10.7 G/DL (12.0-16.0); LYMPHOCYTES % (AUTO) 27.6 % (20.0-45.0); MEAN CORPUSCULAR VOLUME 94 FL (80-99); MONOCYTES % (AUTO) 11.7 % (1.0-10.0); NEUTROPHILS % (AUTO) 47.7 % (45.0-75.0); PLATELET COUNT 201 K/UL (150-450); WHITE BLOOD COUNT 3.5 K/UL (4.8-10.8)
--- NOTE | 2019-12-02 07:06 | NUR ---
HAND-OFF: Report given to Lily Rn, pt. remains stable and no signs of distress noted- aware to f/u on jose am abnormal labs.
--- NOTE | 2019-12-02 07:07 | NUR ---
NURSE NOTES: Received patient in bed. Sitter at bedside. In no apparent distress. Bed in lowest position. No respiratory distress at this time, remains on room air. Patient remains calm at this time. Contact isolation observed. Will continue plan of care.
[2019-12-02 07:41] LABS: ALANINE AMINOTRANSFERASE 66 U/L (12-78); ALBUMIN 2.5 G/DL (3.4-5.0); ALBUMIN/GLOBULIN RATIO 0.7 (1.0-2.7); ALKALINE PHOSPHATASE 101 U/L (46-116); ANION GAP 10 mmol/L (5-15); ASPARTATE AMINO TRANSFERASE 69 U/L (15-37); BILIRUBIN,TOTAL 0.2 MG/DL (0.2-1.0); BLOOD UREA NITROGEN 37 mg/dL (7-18); CALCIUM 8.2 MG/DL (8.5-10.1); CARBON DIOXIDE 25 MMOL/L (21-32); CHLORIDE 109 MMOL/L (98-107); CREATININE 1.9 MG/DL (0.55-1.30); PHOSPHORUS 3.2 MG/DL (2.5-4.9); POTASSIUM 4.5 MMOL/L (3.5-5.1); SODIUM 144 MMOL/L (136-145)
[2019-12-02 08:00] VITALS: BP 128/73
--- NOTE | 2019-12-02 08:00 | NUR ---
NURSE NOTES: Dr. Noguera at bedside.
--- NOTE | 2019-12-02 08:33 | NUR ---
*-* DISCHARGE PLANNING *-* PATIENT HAS BEEN REFERRED BACK TO: [facility] P: [phone] F: [phone]
[2019-12-02] MEDS: Docusate 100mg cap ORAL SCH (08:58)
[2019-12-02] MEDS: Eliquis 2.5mg tablet ORAL SCH (08:58)
--- NOTE | 2019-12-02 09:17 | Nephrology Progress Note ---
Assessment/Plan Problem List: (1) CARYL (acute kidney injury) (2) Electrolyte imbalance (3) Hypothyroidism (4) DMII (diabetes mellitus, type 2) (5) Pacemaker Assessment Renal Failure- HyperKalemia : Aldactone and Lisinopril DM Hypothyroidism : TSH 42 Pacer Plan Patient had a fall yesterday. No obvious injury. CAT scan negative Creatinine marbin to 1.9 we will order a kidney ultrasound Albumin bolus for low blood pressure Hold Aldactone. Hold lisinopril. Kayexalate p.o. once previously Adjust blood pressure medication. Anemia work-up. 2D echocardiogram. Protonix and stool softener. Synthroid is now changed to p.o. Monitor electrolytes and renal parameters. Skin care. Per orders. Subjective ROS Limited/Unobtainable: No Constitutional: Reports: malaise Objective Objective Last 24 Hour Vital Signs Date Time Temp Pulse Resp B/P (MAP) Pulse Ox O2 Delivery O2 Flow Rate FiO2 12/02/19 08:58 68 128/73 12/02/19 08:00 97.4 68 22 128/73 (91) 94 12/02/19 08:00 Room Air 12/02/19 04:00 Room Air 12/02/19 04:00 97.7 65 20 146/75 (98) 96 12/02/19 03:39 64 12/02/19 00:00 Room Air 12/02/19 00:00 96.4 69 18 121/67 (85) 95 12/01/19 23:27 59 12/01/19 20:00 71 117/69 12/01/19 20:00 96.2 71 20 117/69 (85) 95 12/01/19 20:00 63 12/01/19 20:00 Room Air 12/01/19 16:00 98.7 83 20 97/46 (63) 97 12/01/19 16:00 70 12/01/19 16:00 Room Air 12/01/19 12:00 98.6 81 21 112/62 (79) 95 12/01/19 12:00 Room Air 12/01/19 11:35 75 Intake and Output 12/01/19 12/02/19 19:00 07:00 Intake Total 740 ml Output Total 400 ml Balance 740 ml -400 ml Intake Oral 240 ml IV Total 500 ml Output Urine Total 400 ml # Voids 2 Laboratory Tests 12/02/19 06:45: White Blood Count 3.5L, Red Blood Count 3.50L, Hemoglobin 10.7L, Hematocrit 32.8L, Mean Corpuscular Volume 94, Mean Corpuscular Hemoglobin 30.5, Mean Corpuscular Hemoglobin Concent 32.5, Red Cell Distribution Width 15.0H, Platelet Count 201, Mean Platelet Volume 5.0L, Neutrophils (%) (Auto) 47.7, Lymphocytes (%) (Auto) 27.6, Monocytes (%) (Auto) 11.7H, Eosinophils (%) (Auto) 12.1H, Basophils (%) (Auto) 0.9, Sodium Level 144, Potassium Level 4.5, Chloride Level 109H, Carbon Dioxide Level 25, Anion Gap 10, Blood Urea Nitrogen 37H, Creatinine 1.9H, Estimat Glomerular Filtration Rate 30.8, Glucose Level 123H, Uric Acid 9.7H, Calcium Level 8.2L, Phosphorus Level 3.2, Magnesium Level 1.7L, Total Bilirubin 0.2, Aspartate Amino Transf (AST/SGOT) 69H, Alanine Aminotransferase (ALT/SGPT) 66, Alkaline Phosphatase 101, C-Reactive Protein, Quantitative 0.5, Pro-B-Type Natriuretic Peptide 270H, Total Protein 6.2L, Albumin 2.5L, Globulin 3.7, Albumin/Globulin Ratio 0.7L Height (Feet): 5 Height (Inches): 6.00 Weight (Pounds): 137 General Appearance: no apparent distress Cardiovascular: normal rate Respiratory/Chest: decreased breath sounds Abdomen: soft Objective No other changes Wale Noguera MD Dec 02, 2019 09:17
--- NOTE | 2019-12-02 09:48 | General Progress Note ---
Assessment/Plan Problem List: (1) Edema ICD Codes: R60.9 - Edema, unspecified SNOMED: 062999909, 369779811 (2) Anemia ICD Codes: D64.9 - Anemia, unspecified SNOMED: 002307933 (3) Hypothyroidism ICD Codes: E03.9 - Hypothyroidism, unspecified SNOMED: 30098613 (4) DMII (diabetes mellitus, type 2) ICD Codes: E11.9 - Type 2 diabetes mellitus without complications SNOMED: 21113523 (5) Pacemaker ICD Codes: Z95.0 - Presence of cardiac pacemaker SNOMED: 372130800 (6) Osteoarthritis ICD Codes: M19.90 - Unspecified osteoarthritis, unspecified site SNOMED: 174484990 Status: progressing Assessment/Plan: mrsa of hand wound and sepsis is colonized going to snf today see dc summary for details lung cancer worsening dementia Subjective ROS Limited/Unobtainable: Yes Allergies: Coded Allergies: BACLOFEN (Verified Allergy, Severe, ANAPHYLAXIS, 09/12/09) Objective Last 24 Hour Vital Signs Date Time Temp Pulse Resp B/P (MAP) Pulse Ox O2 Delivery O2 Flow Rate FiO2 12/02/19 08:58 68 128/73 12/02/19 08:00 67 12/02/19 08:00 97.4 68 22 128/73 (91) 94 12/02/19 08:00 Room Air 12/02/19 04:00 Room Air 12/02/19 04:00 97.7 65 20 146/75 (98) 96 12/02/19 03:39 64 12/02/19 00:00 Room Air 12/02/19 00:00 96.4 69 18 121/67 (85) 95 12/01/19 23:27 59 12/01/19 20:00 71 117/69 12/01/19 20:00 96.2 71 20 117/69 (85) 95 12/01/19 20:00 63 12/01/19 20:00 Room Air 12/01/19 16:00 98.7 83 20 97/46 (63) 97 12/01/19 16:00 70 12/01/19 16:00 Room Air 12/01/19 12:00 98.6 81 21 112/62 (79) 95 12/01/19 12:00 Room Air 12/01/19 11:35 75 Intake and Output 12/01/19 12/02/19 19:00 07:00 Intake Total 740 ml Output Total 400 ml Balance 740 ml -400 ml Intake Oral 240 ml IV Total 500 ml Output Urine Total 400 ml # Voids 2 Laboratory Tests 12/02/19 06:45: White Blood Count 3.5L, Red Blood Count 3.50L, Hemoglobin 10.7L, Hematocrit 32.8L, Mean Corpuscular Volume 94, Mean Corpuscular Hemoglobin 30.5, Mean Corpuscular Hemoglobin Concent 32.5, Red Cell Distribution Width 15.0H, Platelet Count 201, Mean Platelet Volume 5.0L, Neutrophils (%) (Auto) 47.7, Lymphocytes (%) (Auto) 27.6, Monocytes (%) (Auto) 11.7H, Eosinophils (%) (Auto) 12.1H, Basophils (%) (Auto) 0.9, Sodium Level 144, Potassium Level 4.5, Chloride Level 109H, Carbon Dioxide Level 25, Anion Gap 10, Blood Urea Nitrogen 37H, Creatinine 1.9H, Estimat Glomerular Filtration Rate 30.8, Glucose Level 123H, Uric Acid 9.7H, Calcium Level 8.2L, Phosphorus Level 3.2, Magnesium Level 1.7L, Total Bilirubin 0.2, Aspartate Amino Transf (AST/SGOT) 69H, Alanine Aminotransferase (ALT/SGPT) 66, Alkaline Phosphatase 101, C-Reactive Protein, Quantitative 0.5, Pro-B-Type Natriuretic Peptide 270H, Total Protein 6.2L, Albumin 2.5L, Globulin 3.7, Albumin/Globulin Ratio 0.7L Height (Feet): 5 Height (Inches): 6.00 Weight (Pounds): 137 Neck: supple Cardiovascular: normal rate Respiratory/Chest: lungs clear Olayinka Blount MD Dec 02, 2019 09:48
[2019-12-02] MEDS: Lac Hydrin 12% Lotion 8oz TOPIC SCH (10:05)
[2019-12-02 12:00] VITALS: BP 132/75
--- NOTE | 2019-12-02 12:20 | NUR ---
NURSE NOTES: Informed patient's niece Silvia Jun ([phone]) via telephone that patient is for discharge today.
--- NOTE | 2019-12-02 12:31 | Infectious Diseases Prog Note ---
Assessment/Plan Assessment/Plan IMPRESSION: Recent MRSA sepsis Leukopenia, Eosinophilia, dermatitis, cellulitis of upper extremities, hypertension, COPD, diabetes mellitus, lung cancer, hypothyroidism, history of DVT, dementia with behavioral problem. Acute renal failure Hypoglycemic episode RECOMMENDATION: Continue Zyvox X 10 days wound culture : MRSA Case was D/W Primary MD& RN Subjective ROS Limited/Unobtainable: Yes Constitutional: Reports: other - feels better Skin: Reports: other - itching in R hand Allergies: Coded Allergies: BACLOFEN (Verified Allergy, Severe, ANAPHYLAXIS, 09/12/09) Objective Vital Signs Last 24 Hour Vital Signs Date Time Temp Pulse Resp B/P (MAP) Pulse Ox O2 Delivery O2 Flow Rate FiO2 12/02/19 12:00 98.4 73 20 132/75 (94) 94 12/02/19 12:00 Room Air 12/02/19 11:40 60 12/02/19 08:58 68 128/73 12/02/19 08:00 67 12/02/19 08:00 97.4 68 22 128/73 (91) 94 12/02/19 08:00 Room Air 12/02/19 04:00 Room Air 12/02/19 04:00 97.7 65 20 146/75 (98) 96 12/02/19 03:39 64 12/02/19 00:00 Room Air 12/02/19 00:00 96.4 69 18 121/67 (85) 95 12/01/19 23:27 59 12/01/19 20:00 71 117/69 12/01/19 20:00 96.2 71 20 117/69 (85) 95 12/01/19 20:00 63 12/01/19 20:00 Room Air 12/01/19 16:00 98.7 83 20 97/46 (63) 97 12/01/19 16:00 70 12/01/19 16:00 Room Air Height (Feet): 5 Height (Inches): 6.00 Weight (Pounds): 137 General Appearance: no acute distress HEENT: mucous membranes moist Respiratory/Chest: lungs clear Cardiovascular: normal rate Abdomen: soft, non tender Extremities: other - generalized edema more in arms Skin: other - dry, cracked hyperkeratotic skin Neurologic/Psychiatric: alert, responsive Microbiology Date/Time Source Procedure Growth Status 11/29/19 12:41 Arm Right Gram Stain - Final Complete 11/29/19 12:41 Wound Culture - Final Staphylococcus Aureus - Mrsa Complete Laboratory Tests Test 12/02/19 06:45 White Blood Count 3.5 K/UL (4.8-10.8) L Red Blood Count 3.50 M/UL (4.20-5.40) L Hemoglobin 10.7 G/DL (12.0-16.0) L Hematocrit 32.8 % (37.0-47.0) L Mean Corpuscular Volume 94 FL (80-99) Mean Corpuscular Hemoglobin 30.5 PG (27.0-31.0) Mean Corpuscular Hemoglobin Concent 32.5 G/DL (32.0-36.0) Red Cell Distribution Width 15.0 % (11.6-14.8) H Platelet Count 201 K/UL (150-450) Mean Platelet Volume 5.0 FL (6.5-10.1) L Neutrophils (%) (Auto) 47.7 % (45.0-75.0) Lymphocytes (%) (Auto) 27.6 % (20.0-45.0) Monocytes (%) (Auto) 11.7 % (1.0-10.0) H Eosinophils (%) (Auto) 12.1 % (0.0-3.0) H Basophils (%) (Auto) 0.9 % (0.0-2.0) Sodium Level 144 MMOL/L (136-145) Potassium Level 4.5 MMOL/L (3.5-5.1) Chloride Level 109 MMOL/L (98-107) H Carbon Dioxide Level 25 MMOL/L (21-32) Anion Gap 10 mmol/L (5-15) Blood Urea Nitrogen 37 mg/dL (7-18) H Creatinine 1.9 MG/DL (0.55-1.30) H Estimat Glomerular Filtration Rate 30.8 mL/min (>60) Glucose Level 123 MG/DL (74-106) H Uric Acid 9.7 MG/DL (2.6-7.2) H Calcium Level 8.2 MG/DL (8.5-10.1) L Phosphorus Level 3.2 MG/DL (2.5-4.9) Magnesium Level 1.7 MG/DL (1.8-2.4) L Total Bilirubin 0.2 MG/DL (0.2-1.0) Aspartate Amino Transf (AST/SGOT) 69 U/L (15-37) H Alanine Aminotransferase (ALT/SGPT) 66 U/L (12-78) Alkaline Phosphatase 101 U/L (46-116) C-Reactive Protein, Quantitative 0.5 mg/dL (0.00-0.90) Pro-B-Type Natriuretic Peptide 270 pg/mL (0-125) H Total Protein 6.2 G/DL (6.4-8.2) L Albumin 2.5 G/DL (3.4-5.0) L Globulin 3.7 g/dL Albumin/Globulin Ratio 0.7 (1.0-2.7) L Current Medications Medications (Trade) Dose Ordered Sig/Shania Route PRN Reason Start Time Stop Time Status Last Admin Dose Admin Acetaminophen (Tylenol) 650 mg Q6H PRN ORAL For Pain 1-3 12/01/19 06:00 12/29/19 17:49 Acetaminophen/ Hydrocodone Bitart ([place] 5/325) 1 tab Q6H PRN ORAL For Pain 4-6 12/01/19 06:00 12/06/19 17:49 Ammonium Lactate (Lac Hydrin) 1 applic TWICE A DAY TOPIC 12/01/19 18:00 12/31/19 17:59 12/02/19 10:05 Apixaban (Eliquis) 2.5 mg Q12HR ORAL 12/01/19 09:00 12/30/19 20:59 12/02/19 08:58 Atorvastatin Calcium (Lipitor) 20 mg BEDTIME ORAL 12/01/19 21:00 12/28/19 20:59 12/01/19 20:02 Carvedilol (Coreg) 3.125 mg EVERY 12 HOURS ORAL 12/01/19 09:00 12/28/19 20:59 12/02/19 08:58 Dextrose (Dextrose 50%) 25 ml Q30M PRN IV Hypoglycemia 12/01/19 07:30 12/31/19 07:29 Dextrose (Dextrose 50%) 50 ml Q30M PRN IV Hypoglycemia 12/01/19 07:30 12/31/19 07:29 Docusate Sodium (Colace) 100 mg TWICE A DAY ORAL 12/01/19 09:00 12/28/19 17:59 3/6/20 08:58 Gabapentin (Neurontin) 300 mg Q8HR ORAL 12/01/19 06:00 12/28/19 21:59 12/02/19 05:50 Hydralazine HCl (Apresoline) 25 mg Q4H PRN ORAL bp over 160 syst 12/01/19 02:00 12/29/19 17:49 Insulin Aspart (NovoLOG) BEFORE MEALS AND HS SUBQ 12/01/19 11:30 12/31/19 11:29 12/02/19 05:51 Levothyroxine Sodium (Synthroid) 100 mcg DAILY@0630 ORAL 12/01/19 07:30 12/31/19 07:29 12/02/19 05:50 Linezolid (Zyvox) 600 mg EVERY 12 HOURS ORAL 12/01/19 09:00 12/04/19 17:50 12/02/19 08:58 Lorazepam (Ativan) 1 mg Q6H PRN ORAL For Anxiety 12/01/19 06:00 12/06/19 17:49 Mirtazapine (Remeron) 7.5 mg BEDTIME ORAL 12/01/19 21:00 12/29/19 20:59 12/01/19 20:02 Pantoprazole (Protonix) 40 mg Q12HR ORAL 12/01/19 09:00 12/28/19 20:59 12/02/19 08:58 Simone Haynes MD Dec 02, 2019 12:31
--- NOTE | 2019-12-02 12:35 | NUR ---
NURSE NOTES: Telephone report given to [facility] staff/ FABIOLA Good.
--- NOTE | 2019-12-02 12:36 | NUR ---
NURSE NOTES: Dr. Nichols ordered to have patient continue zyvox every 12 hours PO for 10 more days.
--- NOTE | 2019-12-02 13:20 | NUR ---
INTER-FACILITY TRANSFER: Patient transferred to [facility], per Dr. Blount. Report given to Latisha via telephone and [facility] ambulance at bedside. Patient transferred with valuables and no medications. Belongings verified upon transfer and given to [facility] ambulance staff . Family/S.O. notified of transfer. Remains on room air.
--- NOTE | 2019-12-02 15:17 | Diagnostic Imaging Report ---
Indication: Acute renal failure, abnormal renal function tests Technique: Grayscale and duplex images of the kidneys, retroperitoneum, and bladder were obtained. Comparison: Abdominal ultrasound dated 07/30/2009 Findings: Right kidney measures 9.4 cm in length. Left kidney measures 10.1 cm in length. Both kidneys demonstrate normal echogenicity. There is mild right hydronephrosis. There is borderline left hydronephrosis. 9 mm echogenic focus in the left renal interpolar region likely represents an angiomyolipoma. There are also left renal cysts. Normal inferior vena cava. Bladder is normal. Incidentally noted are bilateral pleural effusions. There is also small amount of ascites Impression: Mild right hydronephrosis, etiology not demonstrated. Borderline left hydronephrosis 9 mm echogenic focus in the left renal interpolar region, likely an angiomyolipoma. Bilateral pleural effusions Trace ascites Incidental finding left renal cysts.
--- NOTE | 2019-12-02 20:15 | Progress Note ---
DATE: 12/02/2019 SUBJECTIVE: The patient is in [place] doing well. No behavior issues noted. The patient is being discharged today. She is calm and pleasant, able to answer all questions. No acute events noted. MENTAL STATUS EXAMINATION: The patient is alert and oriented times to self and place. Mood is neutral. Affect is flat. Thought process is concrete. Thought content, no suicidal or homicidal ideation. ASSESSMENT: Stable. PLAN: 1. We will continue current medications. 2. Provide the patient with reality orientation. 3. Discussed with the nurse. Lupe Edwards M.D. DR: OLEG JOB#: [id number] CC:
--- NOTE | 2019-12-04 09:47 | Discharge Summary ---
Discharge Summary Discharge Summary _ DATE OF ADMISSION: 11/29/2019 DATE OF DISCHARGE: 12/02/2019 DISCHARGED BY: Dr. Olayinka Alvarez CONSULTANTS: Dr. Lupe Huerta BRIEF HOSPITAL COURSE: Patient is a 73-year-old female patient was sent from care home. She reported increased bilateral extremity pain. The patient had worsening upper extremity edema and cellulitis. Patient has been hospitalized before and received IV antibiotics as well as anticoagulation. She has recent diagnosis of lung cancer. She looks cachectic and macerated due to cancer. She also had worsening dementia in the recent past months. She has history of COPD and diabetes and also had leukopenia. Upon evaluation at ED, vital signs were stable. Patient was afebrile. Blood work did not show any leukocytosis. She has evidence of anemia, hemoglobin 10 and hematocrit 31. Potassium level 5.7 BUN 39 and creatinine 1.5. AST 50. proBNP 205. Albumin 2.5. TSH 42. She was admitted for increased bilateral upper extremity swelling and hypothyroidism. [facility] [employer] was consulted for hyperkalemia. Patient is on Aldactone and lisinopril. Medications were placed on hold. She was given Kayexalate. Electrolytes were monitored. TSH was elevated. She was given levothyroxine IV 50 mcg. Blood glucose was monitored. She was placed on NovoLog sliding scale. No need for basal insulin and Starlix. Kidney function was monitored. Kidney ultrasound showed mild right hydronephrosis, borderline left hydronephrosis. 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 Patient would require PET scan. Recommend outpatient evaluation. She was continued on apixaban. She presented with dermatitis. She was given a dose of Elimite cream. She was started empirically on Zyvox [place] and culture results. Patient had episodes of anxiety. She was evaluated by psychiatrist. She was diagnosed with dementia with behavioral disturbance. She was given Ativan as needed. She was given Remeron. Synthroid was changed to p.o. Patient had a fall. CAT scan of the brain was negative. No acute intracranial bleed, mass-effect or edema. 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 Evidence of chronic small vessel disease involving white matter tracts. Wound culture showed growth of MRSA. Patient will need to continue Zyvox p.o every 8 every 12 hours x10 more days. FINAL DIAGNOSES: Recent MRSA sepsis Cellulitis of upper extremity acute kidney injury Dementia with behavioral disturbance Anxiety Leukopenia Eosinophilia Dermatitis Hypertension COPD Diabetes mellitus Recent diagnosis of lung CA Hypothyroidism History of DVT Pacemaker Osteoarthritis DISPOSITION: DC back to SNF. DISCHARGE MEDICATIONS: Refer to Discharge Medication List. I have been assigned to complete a discharge summary on this account, I was not involved with the patient's management.--BAYLEE Robles Jacqueline Robles NP Dec 04, 2019 09:47
== END 2019-12-02 13:20 | DRG 603 ==
LOC: EDUNIT# 13:37 → EDBD 13:37 → EMR 14:14 → 2E 15:00 → EDBEDREQ 16:21 → 4E 11-29 17:54 → 2W 11-30 23:43
DX: L03.114 Cellulitis of left upper limb (principal); N17.9 Acute kidney failure, unspecified; C34.90 Malignant neoplasm of unspecified part of unspecified bronchus or lung; F03.91 Unspecified dementia, unspecified severity, with behavioral disturbance; I82.729 Chronic embolism and thrombosis of deep veins of unspecified upper extremity; L03.113 Cellulitis of right upper limb; Z86.14 Personal history of Methicillin resistant Staphylococcus aureus infection; Z79.01 Long term (current) use of anticoagulants; F41.9 Anxiety disorder, unspecified; D72.1 Eosinophilia; Z95.0 Presence of cardiac pacemaker; M19.90 Unspecified osteoarthritis, unspecified site; Z87.891 Personal history of nicotine dependence; E87.5 Hyperkalemia; E03.9 Hypothyroidism, unspecified; Z88.8 Allergy status to other drugs, medicaments and biological substances; Z79.4 Long term (current) use of insulin; I10 Essential (primary) hypertension; K21.9 Gastro-esophageal reflux disease without esophagitis; E78.5 Hyperlipidemia, unspecified; D64.9 Anemia, unspecified; J44.9 Chronic obstructive pulmonary disease, unspecified; E11.9 Type 2 diabetes mellitus without complications
CPT/HCPCS: 36415; 70450; 76770; 80053; 80061; 81001; 82962; 82977; 83036; 83605; 83735; 83880; 84100; 84443; 84484; 84550; 85025; 85651; 86140; 87070; 87181; 87205; 93005; 93306; 96374; 96375; 99285; J1815